=== PATIENT | female | born 1930 | race Caucasian/White ===

== ENCOUNTER 2016-06-23 16:28 | Inpatient (IN) | payer MEDICARE, OTHER ==
[~2016-06-23] VITALS: Ht 154.9 cm; Wt 46.0 kg
[2016-06-23 17:28] LABS: MEAN CORPUSCULAR HEMOGLOBIN 31.7 pg (27.0-33.0); MEAN CORPUSCULAR HGB CONC 32.5 g/dl (32.0-36.5); MEAN CORPUSCULAR VOLUME 97.6 fl (80.0-96.0); RED CELL DISTRIBUTION WIDTH 14.2 % (11.5-14.5); WHITE BLOOD COUNT 17.2 K/mm3 (4.0-10.0)
--- NOTE | 2016-06-23 17:41 | REP ---
Clinical: Trauma. Comparison: 07/31/2015 . Findings: Age-related atrophy and microvascular ischemic changes are appreciated. The ventricles and sulci are symmetric. Hauser-white differentiation is maintained. There is no evidence for acute intracranial hemorrhage, mass/mass effect, pathology or infarction. No extra-axial fluid collection. Calvarium is intact. Paranasal sinuses and mastoid air cells are clear. Impression: Age related atrophy and microvascular ischemic changes. No acute intracranial hemorrhage, infarction, or mass/mass effect. Signed by Donaldo Canales MD 06/23/2016 05:33 P
--- NOTE | 2016-06-23 18:01 | REP ---
Clinical: Trauma . Comparison: 10/11/2012 . Findings: The mediastinum and cardiac silhouette are stable and within normal limits for portable technique. The lung vargas are clear without acute consolidation, effusion, or pneumothorax. Skeletal structures are intact. Impression: Normal portable chest x-ray No acute cardiopulmonary process appreciated. Signed by Donaldo Canales MD 06/23/2016 05:52 P
--- NOTE | 2016-06-23 18:03 | REP ---
Clinical: Trauma. Technique: AP and cross-table lateral views of the left femur. Findings: In conjunction with left hip series, there is a comminuted intertrochanteric fracture involving the left proximal femur along with age-related degenerative changes. No other fracture or dislocation is identified. Impression: Comminuted intertrochanteric fracture of the left proximal femur. Degenerative changes to the hip and knee joints. Signed by Donaldo Canales MD 06/23/2016 05:55 P
--- NOTE | 2016-06-23 18:04 | REP ---
Clinical: Trauma. Technique: Two AP views of the left hemithorax. Findings: Evidence to suggest old posterior eight - tenth rib fractures. No obvious acute left rib fracture identified. Impression: Old healed left eighth - tenth rib fractures. No obvious acute rib fracture identified. Signed by Donaldo Canales MD 06/23/2016 05:57 P
--- NOTE | 2016-06-23 18:04 | REP ---
Clinical: Trauma. Technique: Single AP view of the left knee. Findings: Osteopenia and degenerative changes including osteophytosis, subchondral sclerosis and joint space narrowing noted. No obvious acute fracture in the frontal projection. Impression: Osteopenia and degenerative changes. Signed by Donaldo Canales MD 06/23/2016 05:55 P
--- NOTE | 2016-06-23 18:08 | REP ---
Clinical: Trauma. Technique: AP view of the pelvis with AP and cross-table lateral views of the left hip. Findings: There is a comminuted, displaced intertrochanteric fracture involving the left proximal femur. Overlying soft tissue swelling and injury as well as vascular injury cannot be excluded. Impression: Comminuted displaced left intertrochanteric fracture of the proximal femur. Cannot exclude associated vascular or surrounding soft tissue injuries. Signed by Donaldo Canales MD 06/23/2016 05:59 P
--- NOTE | 2016-06-23 18:16 | ECGEPIP ---
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
[2016-06-23] MEDS ORDERED: ONDANSETRON 4MG/2ML VIAL (J2405) As Ordered ONE (18:23)
[2016-06-23] MEDS ORDERED: fentaNYL 100 MCG/2 ML INJECTION (J3010) As Ordered ONE (18:24)
[2016-06-23] MEDS ORDERED: FOLI1TAB2 PO (18:59)
[2016-06-23] MEDS ORDERED: HUMI40KI SC (18:59)
[2016-06-23] MEDS ORDERED: ASPI1TAB PO (18:59)
[2016-06-23] MEDS ORDERED: TYLE650T35 PO (18:59)
[2016-06-23] MEDS ORDERED: ESCI20TA PO (19:02)
[2016-06-23] MEDS ORDERED: LEVO112T25 PO (19:02)
[2016-06-23] MEDS ORDERED: LISI10TA4 PO (19:02)
[2016-06-23] MEDS ORDERED: METH2.5TA PO (19:02)
[2016-06-23] MEDS ORDERED: VITA10002 PO (19:03)
[2016-06-23] MEDS ORDERED: TRAM50TA2 PO (19:03)
[2016-06-23] MEDS ORDERED: DRIS50002 PO (19:03)
[2016-06-23 19:17] LABS: INR 0.89
[2016-06-23 19:33] LABS: ALBUMIN 3.4 GM/DL (3.2-5.2); ALKALINE PHOSPHATASE 75 U/L (45-117); ALT/SGPT 20 U/L (12-78); ANION GAP 7 MEQ/L (8-16); AST/SGOT 20 U/L (15-37); BILIRUBIN,DIRECT 0.2 MG/DL (0.0-0.2); BILIRUBIN,TOTAL 0.5 MG/DL (0.2-1.0); BLOOD UREA NITROGEN 21 MG/DL (7-18); CALCIUM LEVEL 8.8 MG/DL (8.8-10.2); CARBON DIOXIDE LEVEL 28 MEQ/L (21-32); CHLORIDE LEVEL 107 MEQ/L (98-107); CREATININE FOR GFR 0.69 MG/DL (0.55-1.02); GLOMERULAR FILTRATION RATE > 60.0 (>32); GLUCOSE, FASTING 137 MG/DL (83-110); POTASSIUM SERUM 4.4 MEQ/L (3.5-5.1); SODIUM LEVEL 142 MEQ/L (136-145); TOTAL PROTEIN 6.8 GM/DL (6.4-8.2)
[2016-06-23] MEDS ORDERED: MORPHINE 2 MG/ML 1ML SYRINGE IV PRN (20:00)
[2016-06-23] MEDS ORDERED: PERCOCET 5MG/325MG TAB PO PRN (20:00)
[2016-06-23] MEDS ORDERED: ONDANSETRON 4MG/2ML VIAL (J2405) IV PRN (20:00)
--- NOTE | 2016-06-23 20:50 | HPE ---
DATE OF ADMISSION: 06/23/2016 PRIMARY CARE PROVIDER: Dr. Bassem Cano ORTHOPEDIC SURGEON: Dr. Loc Dobson CHIEF COMPLAINT: Fall. HISTORY OF PRESENT ILLNESS: This is an 86-year-old female patient with underlying medical history of hypothyroidism, rheumatoid arthritis, osteoarthritis, Alzheimer's dementia, severe, hypertension, baseline ambulatory with assistance and a walker. As per family, the patient fell out of her chair yesterday night and subsequently, as per family, has been in pretty significant pain of the left lower extremity. The patient, at baseline, is alert and oriented times one, requiring 24/7 care, unable to assess activity status. As per family, has not had any coronary arterial disease, history of coronary arterial disease, or cerebrovascular accident. Currently, the patient is nonverbal, seems to be in mild distress, frowning. Denies any chest pain. As per family, yesterday night the patient attempted to stand, tipped to the side and fell. Denies any loss of consciousness. No head trauma. ALLERGIES: No known drug allergies. PAST MEDICAL HISTORY: 1. Hypothyroidism. 2. Rheumatoid arthritis. 3. Severe Alzheimer's dementia. 4. Hypertension. PAST SURGICAL HISTORY: 1. Oophorectomy. SOCIAL HISTORY: The patient lives at home, requiring 24/7 care. No smoking or alcohol usage. No illicit drug use. FAMILY HISTORY: Noncontributory. REVIEW OF SYSTEMS: Unable to obtain. HOME MEDICATIONS: - acetaminophen 650 mg by mouth twice a day - aspirin 81 mg by mouth in the morning - vitamin B12 2000 mcg by mouth daily - citalopram 20 mg by mouth at night - folic acid 1 mg by mouth at night - Humira 40 mg subcutaneous every two weeks on Mondays - levothyroxine 112 mcg by mouth at night - Lisinopril 20 mg at night - methotrexate on Mondays 10 mg by mouth once a week - tramadol 50 mg by mouth twice a day - vitamin D 50,000 by mouth weekly on Mondays PHYSICAL EXAMINATION: VITAL SIGNS: Blood pressure 152/89, pulse 77, respirations 16, temperature 98.3, pulse oximetry 97% on room air. GENERAL: The patient is minimally verbal, grimaces. In mild distress. HEENT: Normocephalic, atraumatic. Dry mucous membranes. PULMONARY: Bilaterally clear to auscultation. CARDIAC: Regular rate and rhythm. Normal S1, S2. ABDOMEN: Soft, nontender. Hypoactive bowel sounds. EXTREMITIES: Left lower extremity is externally rotated and shortened. Dorsalis pedis and posterior tibialis pulses 2+. No edema in bilateral lower extremities. EKG shows sinus rhythm with no significant ST segment changes compared to previous. LABORATORY DATA: WBC 17.2, hemoglobin and hematocrit 9.8/30, platelets 311. Chemistry: Sodium 142, potassium 4.4, chloride 107, bicarbonate 28, BUN 21, creatinine 0.69. Cardiac enzymes: Total CK 224, troponin negative. ASSESSMENT AND PLAN: This is an 86-year-old female patient with underlying medical history of rheumatoid arthritis, hypothyroidism, osteoarthritis, Alzheimer's dementia, severe, hypertension, admitted status post fall with left intertrochanteric fracture. 1. Fall with left intertrochanteric fracture. Orthopedics consulted. Pain regimen as prescribed. IV fluids. The patient had a discussion with orthopedic surgeon and family given the alternatives and family is aware that even if the surgery is success likely the patient will not be able to walk and there is significant risks to the surgery and without the surgery, the patient will experience significant pain. Family is aware of the risk of the surgery and would like to proceed. Despite the risks, family would like to proceed with surgery, given the alternative would be even worse, in terms of prolonged bed bound and significant pain. The patient is currently optimized. Continue aspirin. 2. Hypothyroidism. Continue Synthroid. Followup thyroid panel. 3. History of rheumatoid arthritis. Continue home medications. 4. Osteoarthritis. Continue home medications. 5. Alzheimer's dementia, supportive care. 6. Hypertension. Monitor blood pressure. The patient is currently hypertensive secondary to pain. 7. Pain control. 8. Deep vein thrombosis (DVT) prophylaxis. Heparin subcutaneously for now. We will likely place the patient on Coumadin, as per orthopedics after surgery. DISPOSITION: Pending surgery tomorrow.
--- NOTE | 2016-06-23 21:24 | EDDOCDS ---
Nurse's Notes [facility] Name: Kj Clement Age: 86 yrs Sex: Female : 1930 Arrival Date: 06/23/2016 Time: 16:28 Bed 13 Private MD: Bassem Cano Diagnosis: Unspecified fracture of left femur-Comminuted intertrochanteric fracture of the left proximal femur Presentation: 06/23 16:52 Presenting complaint: Patient states: attempted to stand and tipped to side and fell [facility] last night .injure left hip and lower ext. unwitnessed. no LOC. able to bear weight. Adult Sepsis Screening: The patient does not have new or worsening altered mentation. Patient's respiratory rate is less than 22. Systolic blood pressure is greater than 100. Patient has a qSOFA score of 0- Negative Sepsis Screen. Suicide/Homicide risk assessment- the patient denies having any suicidal and/or homicidal ideations and does not present with any other emotional, behavioral or mental health complaints. Status: Patient is not a business services analyst or dependent. Transition of care: patient was not received from another setting of care. 16:52 Acuity: TAYLOR Level 4 [facility] 16:52 Method Of Arrival: Ambulance [facility] Triage Assessment: 16:57 General: Appears per are provider, overall presentation unchnged. Pain: Denies pain. [facility] Musculoskeletal: No deficits noted. Historical: - Allergies: no known allergies; - Home Meds: 1. acetaminophen 650 mg Oral tab 1 tab every 4-6 hours 2. aspirin 81 mg Oral tab 1 tab once daily 3. folic acid 1 mg Oral tab 1 tab once daily 4. Humira subcutaneous every 2 weeks 5. levothyroxine 112 mcg Oral cap 1 cap once daily 6. Lexapro 20 mg Oral tab 1 tab once daily 7. lisinopril 10 mg Oral tab 1 tab once daily 8. Methotrexate (Anti-Rheumatic) 2.5 mg Oral DsPk 4 tabs once wkly 9. tramadol 50 mg Oral tab 1 tab every 12 hours 10. Vitamin B-12 2,000 mcg Oral TbER daily 11. Vitamin [place] Oral [address]06 unit weekly - PMHx: Thyroid problem; Rheumatoid Arthritis; Osteoarthritis; Dementia; Hypertension; - PSHx: oopherectomy; - Social history: Smoking status: Patient states was never smoker of tobacco. No barriers to communication noted. - Family history: Not pertinent. - : The pt / caregiver states he / she is not on anticoagulants. Home medication list is obtained from the caregiver. - Exposure Risk Screening:: None identified. Screenin:02 Screening information is obtained from family members. Fall risk: At risk due to age. [facility] Assistance ADL's: Requires assistance with meal preparation, this assistance is provided by family members, bathing, assistance is provided by family members, dressing, assistance is provided by family members, toileting, assistance is provided by family members, ambulation, assistance is provided by family members, housework, assistance is provided by family members, medication administration, assistance is provided by care providers. Abuse/DV Screen: The patient / caregiver reports he/she is: not in a situation that causes fear, pain or injury. Nutritional screening: No deficits noted. Advance Directives: Currently, there is a health care proxy, There is no active DNR order. There is no living will. There is an active Power of Outside Maintenance Worker, chase marquis. home support is adequate. Assessment: 17:02 General: Appears ambulance arrival. without shortening or rotation. pulses intact x 2. [facility] 18:34 General: Appears non verbal. grimaces with movement of leg. family attentive at side.. [facility] 19:08 General: Appears Unable to volunteer pain level. overall presentation UNCHANGED FROM [facility] ARRIVAL. vs ASMNOTED. 19:39 Reassessment: Patient appears in no apparent distress at this time. Patient states jp6 symptoms have not improved. General: Appears in no apparent distress, slender, Behavior is cooperative, quiet. Pain: Noted to be sleeping. Neurological: No deficits noted. Level of Consciousness is confused, Oriented to confused x3. EENT: No deficits noted. Cardiovascular: Capillary refill < 3 seconds Heart tones S1 S2 Edema is absent. Pulses are all present. Rhythm is regular. Respiratory: No deficits noted. Airway is patent Respiratory effort is even, unlabored, Respiratory pattern is regular, symmetrical, Breath sounds are clear bilaterally. GI: No deficits noted. : No deficits noted. Derm: Skin is intact, Skin is dry, Skin is pink, warm & dry. Musculoskeletal: Circulation, motion, and sensation intact Capillary refill < 3 seconds Range of motion limited in left hip. Vital Signs: 16:57 BP 170 / 42; Pulse 85; Resp 18; Temp 98.3(T); Pulse Ox 98% on R/A; Weight 44 kg; Height [facility] 5 ft. 197 in. (652.78 cm); 18:34 BP 192 / 80; Pulse 89; Resp 16; Pulse Ox 97% on R/A; jmk 19:07 BP 152 / 90 (auto/); jp6 19:08 BP 152 / 89; Pulse 77; jmk 19:30 BP 146 / 94 (auto/); jp6 19:38 BP 146 / 94; Pulse 84; Resp 16; Temp 99.4; Pulse Ox 98% on R/A; Pain 0/10; jp6 20:30 BP 186 / 77 (auto/); jp6 20:38 BP 210 / 87 (auto/); jp6 20:41 Pulse 84 MON; Pulse Ox 93% ; jp6 20:43 BP 174 / 73 (auto/); jp6 20:43 Pulse 84 MON; Pulse Ox 96% ; jp6 20:51 Pulse 82 MON; Pulse Ox 93% ; jp6 16:57 Body Mass Index 1.03 (44.00 kg, 652.78 cm) [facility] Vitals: 16:57 Log In Time N/A - ambulance arrival. [facility] ED Course: 16:29 Patient visited by Pamela Kay. mt4 16:29 Bassem Cano is Private Physician. mt4 16:29 Patient moved to Waiting mt4 16:30 Patient moved to 13 mt4 16:39 Imelda Linder DO is [facility]. bs6 16:39 Dasha Pineda MD is Attending Physician. bs6 16:39 Patient visited by Imelda Linder DO. bs6 16:39 Patient visited by Imelda Linder DO. bs6 16:54 Triage Initiated jmk 16:59 [facility] [place] was scanned into [employer] and attached to record. zo 17:02 The patient / caregiver is instructed regarding the plan of care and ED course. jmk 17:13 Patient visited by Jonny Beltre PCA. jlf 17:13 Patient visited by Jonny Beltre PCA. jlf 17:13 EKG done. (by ED staff). Reviewed by Dasha Pineda MD. jlf 17:16 Troponin Sent. jmk 17:16 CBC Sent. jmk 17:16 Basic Metabolic Profile Sent. jmk 17:16 Cardiac Injury Profile Sent. jmk 18:13 Type & Screen Sent. jmk 18:14 Pt & Aptt Sent. jmk 18:21 CT Head Without Contrast Returned. EDMS 18:21 Chest, 2 View (pa\E\lat) Returned. EDMS 18:21 Femur Returned. EDMS 18:21 Knee, Complete Returned. EDMS 18:21 Ribs-Uni Without PA Chest Returned. EDMS 18:21 Hip,AP,LAT to include Pelvis Returned. EDMS 18:41 Patient visited by Jonny Beltre PCA. jlf 19:07 EKG-ADULT Returned. EDMS 19:10 Yaneth Pérez is Hospitalizing Provider. bs6 19:38 Noy Muse,RN is Primary Nurse. jp6 19:38 Patient visited by Noy Muse,BENNIE. jp6 19:39 Inserted saline lock: 20 gauge in left forearm. No procedures done that require jp6 assistance. 19:41 Admission Orders was scanned into [employer] and attached to record. ml3 21:01 Pulse ox on. NIBP on. jp6 21:01 Raymundo cath inserted 16 Fr. Balloon inflated. To gravity drainage. Urine specimen jp6 collected. returned cloudy urine. 21:11 URINE CULTURE Sent. jp6 21:11 URINALYSIS Sent. jp6 Administered Medications: 18:35 Drug: Ondansetron 4 mg Route: IVP; Site: left wrist; jmk 18:36 Drug: NS 0.9% 1000 ml Route: IV; Rate: 100 mL/hr; Site: left antecubital; jmk 18:36 Drug: fentaNYL (PF) 25 mcg [fentanyl (PF) 50 mcg/mL injection solution (0.5 mL)] Route: [facility] IVP; Site: left wrist; Order Results: Lab Order: Cardiac Injury Profile; SPEC'M 06/23/16 19:03 Test: CPK CREATINE PHOSPHOKINASE; Value: 224; Range: 26-192; Abnormal: Above high normal; Units: U/L; Status: F Test: CK-MB VALUE MASS; Value: 4.0; Range: 0.0-3.6; Abnormal: Above high normal; Units: NG/ML; Status: F Test: MB/CK RELATIVE INDEX; Value: 1.78; Range: < OR =4; Status: F Test Note: ; DIAGNOSIS CRITERIA MMB ng/ml Relative Index (RI) NON-AMI < or = 5 N/A HAUSER ZONE > 5 < or = 4 AMI > 5 > 4 Lab Order: Troponin; [facility] 06/23/16 19:03 Test: TROPONIN I; Value: 0.02; Range: < 0.10; Units: NG/ML; Status: F Test Note: ; Troponin I Reference Interval for [employer] LOCI: 99th Percentile= 0.00-0.045 ng/ml Risk Stratification: <= 0.10 ng/ml Decreased Risk for Adverse Clinical Events. 0.10-1.50 ng/ml Increased Risk for Adverse Clinical Events. Evaluation of additional criterion and/or repeat testing in 2-6 hours is suggested to rule out myocardial damage. >= 1.50 ng/ml Indicative of Myocardial Injury. Lab Order: CBC; [facility] 06/23/16 17:15 Test: WHITE BLOOD COUNT; Value: 17.2; Range: 4.0-10.0; Abnormal: Above high normal; Units: K/mm3; Status: F Test: RED BLOOD COUNT; Value: 3.08; Range: 4.00-5.40; Abnormal: Below low normal; Units: M/mm3; Status: F Test: HEMOGLOBIN; Value: 9.8; Range: 12.0-16.0; Abnormal: Below low normal; Units: g/dl; Status: F Test: HEMATOCRIT; Value: 30.0; Range: 36.0-47.0; Abnormal: Below low normal; Units: %; Status: F Test: MEAN CORPUSCULAR VOLUME; Value: 97.6; Range: 80.0-96.0; Abnormal: Above high normal; Units: fl; Status: F Test: MEAN CORPUSCULAR HEMOGLOBIN; Value: 31.7; Range: 27.0-33.0; Units: pg; Status: F Test: MEAN CORPUSCULAR HGB CONC; Value: 32.5; Range: 32.0-36.5; Units: g/dl; Status: F Test: RED CELL DISTRIBUTION WIDTH; Value: 14.2; Range: 11.5-14.5; Units: %; Status: F Test: PLATELET COUNT, AUTOMATED; Value: 311; Range: 150-450; Units: k/mm3; Status: F Lab Order: Basic Metabolic Profile; [facility] 06/23/16 19:03 Test: GLUCOSE, FASTING; Value: 137; Range: 83-110; Abnormal: Above high normal; Units: MG/DL; Status: F Test: BLOOD UREA NITROGEN; Value: 21; Range: 7-18; Abnormal: Above high normal; Units: MG/DL; Status: F Test: CREATININE FOR GFR; Value: 0.69; Range: 0.55-1.02; Units: MG/DL; Status: F Test: GLOMERULAR FILTRATION RATE; Value: > 60.0; Range: >32; Status: F Test: SODIUM LEVEL; Value: 142; Range: 136-145; Units: MEQ/L; Status: F Test: POTASSIUM SERUM; Value: 4.4; Range: 3.5-5.1; Units: MEQ/L; Status: F Test: CHLORIDE LEVEL; Value: 107; Range: 98-107; Units: MEQ/L; Status: F Test: CARBON DIOXIDE LEVEL; Value: 28; Range: 21-32; Units: MEQ/L; Status: F Test: ANION GAP; Value: 7; Range: 8-16; Abnormal: Below low normal; Units: MEQ/L; Status: F Test: CALCIUM LEVEL; Value: 8.8; Range: 8.8-10.2; Units: MG/DL; Status: F Test Note: ; Units are mL/min/1.73 m2 Chronic Kidney Disease Staging per NKF: Stage I & II GFR >=60 Normal to Mildly Decreased Stage III GFR 30-59 Moderately Decreased Stage IV GFR 15-29 Severely Decreased Stage V GFR <15 Very Little GFR Left ESRD GFR <15 on HIGH SCHOOL DIRECTOR Lab Order: Pt & Aptt; [facility]' 06/23/16 19:03 Test: PROTHROMBIN TIME; Value: 12.1; Range: 12.3-14.5; Abnormal: Below low normal; Units: SECONDS; Status: F Test: INR; Value: 0.89; Status: F Test: PARTIAL THROMBOPLASTIN TIME; Value: 20.0; Range: 26.6-37.1; Abnormal: Below low normal; Units: SECONDS; Status: F Test Note: ; THERAPUTIC HUMAN INR VALUES INDICATIONS NORMAL RANGES PROPHYLAXIS/TREATMENT OF: VENOUS THROMBOSIS 2.0-3.0 PULMONARY EMBOLISM 2.0-3.0 PREVENTION OF SYSTEMIC EMBOLISM FROM: TISSUE HEART VALVES 2.0-3.0 ACUTE MYOCARDIAL INFARCTION 2.0-3.0 VALVULAR HEART DISEASE 2.0-3.0 ATRIAL FIBRILLATION 2.0-3.0 MECHANICAL VALVES(HIGH RISK) 2.5-3.5 RECURRENT MYOCARDIAL INFARCTION 2.5-3.5 Lab Order: Type & Screen; SPEC' 06/23/16 19:03 Test: BLOOD TYPE; Value: A POS; Status: F Test: AB SCREEN (INDIRECT DELVIN)GEL; Value: NEGATIVE; Status: F Lab Order: LIVER PROFILE; [facility]' 06/23/16 19:03 Test: AST/SGOT; Value: 20; Range: 15-37; Units: U/L; Status: F Test: ALT/SGPT; Value: 20; Range: 12-78; Units: U/L; Status: F Test: ALKALINE PHOSPHATASE; Value: 75; Range: 45-117; Units: U/L; Status: F Test: BILIRUBIN,TOTAL; Value: 0.5; Range: 0.2-1.0; Units: MG/DL; Status: F Test: BILIRUBIN,DIRECT; Value: 0.2; Range: 0.0-0.2; Units: MG/DL; Status: F Test: TOTAL PROTEIN; Value: 6.8; Range: 6.4-8.2; Units: GM/DL; Status: F Test: ALBUMIN; Value: 3.4; Range: 3.2-5.2; Units: GM/DL; Status: F Test: ALBUMIN/GLOBULIN RATIO; Value: 1.00; Range: 1.00-1.93; Status: F Radiology Order: EKG-ADULT Test: EKG-ADULT REASON FOR EXAMINATION: Trauma; Stationary ECG Study; [facility] - ED; ; Test Date: 2016-06-23; Pat Name: KJ CLEMENT Department:; Room: -; Gender: F Deputy Probation Officer: kiersten; : 1930 Requested By: IMELDA LINDER; Order Number: [id number] Reading MD: Mario Khan; Measurements; Intervals [place]; Rate: 87 P: 69; TX: 127 QRS: 36; QRSD: 78 T: 64; QT: 326; QTc: 393; Interpretive Statements; SINUS RHYTHM; LVH; NONSPECIFIC ST T-WAVE ABNORMALITY; SIMILAR TO 10/11/12; Electronically Signed On 06-23-2016 18:15:39 EST by Mario Khan; Radiology Order: Chest, 2 View (pa\E\lat) Test: Chest, 2 View (pa\E\lat) REASON FOR EXAMINATION: Trauma; Clinical: Trauma .; ; Comparison: 10/11/2012 .; ; Findings:; The mediastinum and cardiac silhouette are stable and within normal limits for; portable technique. The lung vargas are clear without acute consolidation,; effusion, or pneumothorax. Skeletal structures are intact.; ; Impression:; Normal portable chest x-ray; No acute cardiopulmonary process appreciated.; ; ; Signed by; Donaldo Canales MD 06/23/2016 05:52 P; Radiology Order: Hip,AP,LAT to include Pelvis Test: Hip,AP,LAT to include Pelvis REASON FOR EXAMINATION: Trauma; Clinical: Trauma.; ; Technique: AP view of the pelvis with AP and cross-table lateral views of the; left hip.; ; Findings:; There is a comminuted, displaced intertrochanteric fracture involving the left; proximal femur. Overlying soft tissue swelling and injury as well as vascular; injury cannot be excluded.; ; Impression:; Comminuted displaced left intertrochanteric fracture of the proximal femur.; Cannot exclude associated vascular or surrounding soft tissue injuries.; ; ; Signed by; Donaldo Canales MD 06/23/2016 05:59 P; Radiology Order: Femur Test: Femur REASON FOR EXAMINATION: Trauma; Clinical: Trauma.; ; Technique: AP and cross-table lateral views of the left femur.; ; Findings:; In conjunction with left hip series, there is a comminuted intertrochanteric; fracture involving the left proximal femur along with age-related degenerative; changes. No other fracture or dislocation is identified.; ; Impression:; Comminuted intertrochanteric fracture of the left proximal femur.; Degenerative changes to the hip and knee joints.; ; ; Signed by; Donaldo Canales MD 06/23/2016 05:55 P; Radiology Order: Knee, Complete Test: Knee, Complete REASON FOR EXAMINATION: Trauma; Clinical: Trauma.; ; Technique: Single AP view of the left knee.; ; Findings:; Osteopenia and degenerative changes including osteophytosis, subchondral; sclerosis and joint space narrowing noted. No obvious acute fracture in the; frontal projection.; ; Impression:; Osteopenia and degenerative changes.; ; ; Signed by; Donaldo Canales MD 06/23/2016 05:55 P; Radiology Order: Ribs-Uni Without PA Chest Test: Ribs-Uni Without PA Chest REASON FOR EXAMINATION: Trauma; Clinical: Trauma.; ; Technique: Two AP views of the left hemithorax.; ; Findings:; Evidence to suggest old posterior eight - tenth rib fractures. No obvious acute; left rib fracture identified.; ; Impression:; Old healed left eighth - tenth rib fractures.; No obvious acute rib fracture identified.; ; ; Signed by; Donaldo Canales MD 06/23/2016 05:57 P; Radiology Order: CT Head Without Contrast Test: CT Head Without Contrast REASON FOR EXAMINATION: Trauma; Clinical: Trauma.; ; Comparison: 07/31/2015 .; ; Findings:; Age-related atrophy and microvascular ischemic changes are appreciated. The; ventricles and sulci are symmetric. Hauser-white differentiation is maintained.; There is no evidence for acute intracranial hemorrhage, mass/mass effect,; pathology or infarction. No extra-axial fluid collection. Calvarium is intact.; Paranasal sinuses and mastoid air cells are clear.; ; Impression:; Age related atrophy and microvascular ischemic changes.; No acute intracranial hemorrhage, infarction, or mass/mass effect.; ; ; Signed by; Donaldo Canales MD 06/23/2016 05:33 P; Outcome: 19:14 Decision to Hospitalize by Provider. bs6 21:01 Discharge Assessment: Patient confused, Oriented to none Patient Patient able to jp6 independently bathe himself/herself with little or no assistance, to independently dress himself/herself with little or no assistance, to independently attend to toileting needs with little or no assistance, to independently transfer in/out of bed and/or chair with little or no assistance, patient administered narcotics - yes. The following High Risk Discharge criteria are identified: None. Admitted to Med/Surg accompanied by tech, via stretcher, with chart. Condition: unchanged. No special radiology studies were completed. Admission hand-off: Report Faxed Fax receipt verified by Janell Henning. Property :Personal belongings accompany Pt. 21:22 Patient left the ED. jp6 Signatures: Dispatcher [employer] EDMS Dallas Aquino,RN RN quinten Gloria, Parker, Mandarin Teacher Unit ml3 Nam, Sabrinaperlajinny sabrina Rahul, Pamela mt4 Jonny Beltre, ORIGINATION SPECIALIST ORIGINATION SPECIALIST jlf Imelda Linder, DO bs6 Noy Muse,RN RN jp6 Corrections: (The following items were deleted from the chart) 18:31 18:13 LIVER PROFILE+LAB sent. quinten [facility] 18:41 18:14 PROTHROMBIN TIME PROFILE\E\INR+LAB sent. quinten MENDOZA MTDD
--- NOTE | 2016-06-23 21:24 | EDDOCDS ---
Physician Documentation [facility] Name: Martha Moroe Age: 86 yrs Sex: Female : 1930 Arrival Date: 06/23/2016 Time: 16:28 Bed 13 Private MD: Bassem Cano Disposition: 06/23/16 19:14 Hospitalization ordered by Yaneth Pérez for Inpatient Admission. Preliminary diagnosis is Unspecified fracture of left femur - Comminuted intertrochanteric fracture of the left proximal femur. - Bed requested for 5 Henning. - Status is Inpatient Admission. jp6 - Condition is Stable. - Problem is new. - Symptoms are unchanged. Historical: - Allergies: no known allergies; - Home Meds: 1. acetaminophen 650 mg Oral tab 1 tab every 4-6 hours 2. aspirin 81 mg Oral tab 1 tab once daily 3. folic acid 1 mg Oral tab 1 tab once daily 4. Humira subcutaneous every 2 weeks 5. levothyroxine 112 mcg Oral cap 1 cap once daily 6. Lexapro 20 mg Oral tab 1 tab once daily 7. lisinopril 10 mg Oral tab 1 tab once daily 8. Methotrexate (Anti-Rheumatic) 2.5 mg Oral DsPk 4 tabs once wkly 9. tramadol 50 mg Oral tab 1 tab every 12 hours 10. Vitamin B-12 2,000 mcg Oral TbER daily 11. Vitamin D Oral 79120 unit weekly - PMHx: Thyroid problem; Rheumatoid Arthritis; Osteoarthritis; Dementia; Hypertension; - PSHx: oopherectomy; - Social history: Smoking status: Patient states was never smoker of tobacco. No barriers to communication noted. - Family history: Not pertinent. - : The pt / caregiver states he / she is not on anticoagulants. Home medication list is obtained from the caregiver. - Exposure Risk Screening:: None identified. Vital Signs: 06/23 16:57 BP 170 / 42; Pulse 85; Resp 18; Temp 98.3(T); Pulse Ox 98% on R/A; Weight 44 kg / 97 jmk lbs; Height 5 ft. 197 in. (652.78 cm); 18:34 BP 192 / 80; Pulse 89; Resp 16; Pulse Ox 97% on R/A; jmk 19:07 BP 152 / 90 (auto/); jp6 19:08 BP 152 / 89; Pulse 77; jmk 19:30 BP 146 / 94 (auto/); jp6 19:38 BP 146 / 94; Pulse 84; Resp 16; Temp 99.4; Pulse Ox 98% on R/A; Pain 0/10; jp6 20:30 BP 186 / 77 (auto/); jp6 20:38 BP 210 / 87 (auto/); jp6 20:41 Pulse 84 MON; Pulse Ox 93% ; jp6 20:43 BP 174 / 73 (auto/); jp6 20:43 Pulse 84 MON; Pulse Ox 96% ; jp6 20:51 Pulse 82 MON; Pulse Ox 93% ; jp6 16:57 Body Mass Index 1.03 (44.00 kg, 652.78 cm) quinten MDM: 16:47 Financial registration complete. zo 16:59 [facility] [place] Agreement was scanned into [facility] and attached to record. zo 17:03 Cardiac Injury Profile Ordered. EDMS 17:03 Troponin Ordered. EDMS 17:03 CBC Ordered. EDMS 17:03 Basic Metabolic Profile Ordered. EDMS 17:04 Chest, 2 View (pa\E\lat) Ordered. EDMS 17:04 Hip,AP,LAT to include Pelvis Ordered. EDMS 17:04 Femur Ordered. EDMS 17:04 ECG WITH READING ER PHYS+CARDIAG ordered. EDMS 17:04 Knee, Complete Ordered. EDMS 17:04 CT Head Without Contrast Ordered. EDMS 17:05 Ribs-Uni Without PA Chest Ordered. EDMS 17:53 BED REQUEST+ADM ordered. EDMS 17:54 Pt & Aptt Ordered. EDMS 17:54 Type & Screen Ordered. EDMS 18:02 NS 0.9% 1000 ml IV at 100 mL/hr continuous ordered. bs6 18:02 Ondansetron 4 mg IVP once ordered. bs6 18:02 fentaNYL (PF) 25 mcg IVP once ordered. bs6 18:31 LIVER PROFILE Ordered. EDMS 19:41 Admission Orders was scanned into [facility] and attached to record. ml3 19:57 CARDIAC MARKER PANEL Ordered. EDMS 19:58 CARDIAC MARKER PANEL Ordered. EDMS 19:58 BLOOD CULTURES Ordered. EDMS 19:58 BLOOD CULTURES Ordered. EDMS 20:00 NPO FOR TEST/PROCEDURE ordered. EDMS 20:01 URINALYSIS Ordered. EDMS 20:01 URINE CULTURE Ordered. EDMS 20:03 Admission / Observation Status ordered. EDMS 20:04 COMPLETE BLOOD COUNT Ordered. EDMS 20:04 BASIC METABOLIC PROFILE Ordered. EDMS 20:04 MAGNESIUM LEVEL Ordered. EDMS 20:48 THYROID PROFILE Ordered. EDMS Administered Medications: 18:35 Drug: Ondansetron 4 mg Route: IVP; Site: left wrist; [facility] 18:36 Drug: NS 0.9% 1000 ml Route: IV; Rate: 100 mL/hr; Site: left antecubital; [facility] 18:36 Drug: fentaNYL (PF) 25 mcg [fentanyl (PF) 50 mcg/mL injection solution (0.5 mL)] Route: quinten IVP; Site: left wrist; Signatures: Dispatcher [employer] EDMS Dallas Aquino,RN RN Parker Nice, Consulting [employer] Professional Unit ml3 Jass Browning Brogan, DO bs6 Noy Muse,RN RN jp6 The chart was reviewed and I authenticate all verbal orders and agree with the evaluation and treatment provided.Corrections: (The following items were deleted from the chart) 18:31 17:54 LIVER PROFILE+LAB ordered. EDMS EDMS 18:41 17:54 PROTHROMBIN TIME PROFILE\E\INR+LAB ordered. EDNM EDMS 20:02 20:00 REGULAR DIET ordered. EDNM EDMS 20:48 20:11 THYROID PROFILE ordered. EDNM EDMS Attachments: 16:59 [facility] Payment Agreement zo 19:41 Admission Orders ml3 MTDD
[2016-06-23 21:30] VITALS: BP 172/77
[2016-06-23] MEDS: ESCITALOPRAM OXALATE 10 MG TAB (LEXAPRO) PO SCH (22:17)
[2016-06-23] MEDS: ASPIRIN 81 MG ENTERIC TAB PO SCH (22:18)
[2016-06-23] MEDS: LEVOTHYROXINE 0.112 MG TAB (112 MCG) PO SCH (22:18)
[2016-06-23] MEDS: SENOKOT S TAB PO SCH (22:20)
[2016-06-23] MEDS: FOLIC ACID 1 MG TAB PO SCH (22:21)
[2016-06-23] MEDS: CYANOCOBALAMIN 500 MCG TAB PO SCH (22:21)
[2016-06-23] MEDS: LR 1,000 ML IV SCH (22:23)
[2016-06-24] VITALS (7 sets, daily range): BP systolic 119–162; BP diastolic 60–94
[2016-06-24] MEDS ORDERED: HEPARIN SOD (PORCINE) 5000 UNITS/ML VIAL SC SCH (06:00)
[2016-06-24 06:21] LABS: MEAN CORPUSCULAR HEMOGLOBIN 32.4 pg (27.0-33.0); MEAN CORPUSCULAR HGB CONC 32.9 g/dl (32.0-36.5); MEAN CORPUSCULAR VOLUME 98.6 fl (80.0-96.0); RED CELL DISTRIBUTION WIDTH 14.2 % (11.5-14.5); WHITE BLOOD COUNT 13.6 K/mm3 (4.0-10.0)
[2016-06-24 06:49] LABS: ANION GAP 9 MEQ/L (8-16); BLOOD UREA NITROGEN 18 MG/DL (7-18); CALCIUM LEVEL 9.1 MG/DL (8.8-10.2); CARBON DIOXIDE LEVEL 28 MEQ/L (21-32); CHLORIDE LEVEL 106 MEQ/L (98-107); CREATININE FOR GFR 0.59 MG/DL (0.55-1.02); GLOMERULAR FILTRATION RATE > 60.0 (>32); GLUCOSE, FASTING 127 MG/DL (83-110); MAGNESIUM LEVEL 1.8 MG/DL (1.8-2.4); POTASSIUM SERUM 4.4 MEQ/L (3.5-5.1); SODIUM LEVEL 143 MEQ/L (136-145); T UPTAKE 38 % (30-39)
[2016-06-24] MEDS: SENOKOT S TAB PO SCH ×2 (07:40→20:31)
[2016-06-24] MEDS: PANTOPRAZOLE 40MG TAB (PROTONIX) PO SCH (07:40)
[2016-06-24] MEDS: LR 1,000 ML IV SCH ×2 (09:20→18:45)
--- NOTE | 2016-06-24 09:26 | IPN ---
DATE: 06/24/2016 86-year-old female seen at bedside. No overnight issues reported. She is relatively nonverbal and has history of advanced dementia. OBJECTIVE: Temperature 97.9, pulse 91, respiratory rate is 20, blood pressure 145/76, SpO2 is 94% on room air. GENERAL: The patient appears to be no acute distress. She is resting comfortably. HEENT: Unremarkable. Throat clear. LUNGS: Clear. HEART: Regular rate and rhythm. ABDOMEN: Soft. EXTREMITIES: No edema. No calf tenderness. LABORATORY DATA: White count is 13.6, hemoglobin 8.3, platelets 254,000, sodium 143, potassium 4.4, chloride 106, bicarb 28, anion gap 9, BUN 18, creatinine 0.59, glucose 127, magnesium 1.8. Troponins remained negative times three. Her urine did show 3+ leukocyte esterase, too numerous to count WBCs, 3+ bacteria. Blood cultures pending times two. Urine culture is pending. ASSESSMENT/PLAN: 1. Status post mechanical fall with left intertrochanteric fracture. Orthopedics is on board and managing pain regimen, bowel regimen and anticoagulation. The patient has been medically optimized by Dr. Garcia on admission. Despite the risks, the family would like to proceed with surgery given the alternative could be worse with prolonged bed bound and significant pain. They are aware of this and again wish to proceed. Continue aspirin. 2. Hypothyroidism. Continue on Synthroid. 3. History of rheumatoid arthritis. Continue current medications. 4. Osteoarthritis. Continue with home medications. 5. Advanced Alzheimer's dementia. Supportive care. 6. Hypertension. Will continue to monitor. 7. Pain control as per orthopedics. 8. Deep vein thrombosis (DVT) prophylaxis. Subcu heparin for now. Likely placed on Coumadin by orthopedics. DISPOSITION: Planned surgery sometime today and she will likely need some kind of physical therapy post surgery.
[2016-06-24] MEDS ORDERED: ceFAZolin 1GM INJ (J0690) As Ordered ONE (09:28)
[2016-06-24] MEDS ORDERED: PROPOFOL 200 MG/20 ML VIAL As Ordered ONE (10:23)
[2016-06-24] MEDS ORDERED: KETAMINE HCL 200 MG/20 ML VIAL As Ordered ONE (10:23)
[2016-06-24] MEDS ORDERED: MIDAZOLAM INJ 2 MG/2 ML VIAL (J2250) As Ordered ONE (10:23)
[2016-06-24] MEDS ORDERED: PHENYLephrine HCL 500 MCG/5 ML (100MCG/ML) SYRINGE (J2370) As Ordered ONE ×2 (10:23→10:46)
[2016-06-24] MEDS ORDERED: ceFAZolin 1GM INJ (J0690) IR ONE (10:37)
[2016-06-24] MEDS ORDERED: PHENYLEPHRINE INJ 10MG/ML VIAL (J2370) As Ordered ONE (10:58)
[2016-06-24] MEDS ORDERED: ONDANSETRON 4MG/2ML VIAL (J2405) IV PRN (12:00)
[2016-06-24] MEDS ORDERED: fentaNYL 100 MCG/2 ML INJECTION (J3010) IV PRN (12:00)
[2016-06-24] MEDS ORDERED: MORPHINE 2 MG/ML 1ML SYRINGE IV PRN (12:00)
[2016-06-24] MEDS ORDERED: LR 1,000 ML IV SCH (12:00)
--- NOTE | 2016-06-24 12:54 | REP ---
Clinical: Status post open reduction and fixation. Technique: Intraoperative fluoroscopic imaging. Findings: Four intraoperative fluoroscopic images demonstrate the patient to be status post intramedullary ross placement for left intertrochanteric fracture. Satisfactory alignment and reduction. Total fluoroscopic time 3 minutes 25 seconds. Impression: Status post open reduction and fixation for intertrochanteric fracture. Signed by Donaldo Canales MD 06/24/2016 12:45 P
[2016-06-24] MEDS ORDERED: PERCOCET 5MG/325MG TAB PO PRN (13:30)
[2016-06-24] MEDS: CYANOCOBALAMIN 500 MCG TAB PO SCH (20:30)
[2016-06-24] MEDS: FOLIC ACID 1 MG TAB PO SCH (20:30)
[2016-06-24] MEDS: LEVOTHYROXINE 0.112 MG TAB (112 MCG) PO SCH (20:30)
[2016-06-24] MEDS: ESCITALOPRAM OXALATE 10 MG TAB (LEXAPRO) PO SCH (20:30)
[2016-06-24] MEDS: ASPIRIN 81 MG ENTERIC TAB PO SCH (20:30)
[2016-06-24] MEDS ORDERED: WARFARIN SOD 5 MG TAB PO ONE (21:00)
[2016-06-25] MEDS: ACETAMINOPHEN TAB 650MG DOSE (2X325MG) PO PRN ×3 (03:11→20:45)
[2016-06-25 06:00] VITALS: BP 157/69
[2016-06-25 06:32] LABS: MEAN CORPUSCULAR HEMOGLOBIN 32.3 pg (27.0-33.0); MEAN CORPUSCULAR HGB CONC 32.4 g/dl (32.0-36.5); MEAN CORPUSCULAR VOLUME 99.8 fl (80.0-96.0); RED CELL DISTRIBUTION WIDTH 14.1 % (11.5-14.5); WHITE BLOOD COUNT 11.4 K/mm3 (4.0-10.0)
[2016-06-25 06:35] LABS: INR 1.08
[2016-06-25 06:45] LABS: ANION GAP 8 MEQ/L (8-16); BLOOD UREA NITROGEN 17 MG/DL (7-18); CALCIUM LEVEL 8.6 MG/DL (8.8-10.2); CARBON DIOXIDE LEVEL 29 MEQ/L (21-32); CHLORIDE LEVEL 105 MEQ/L (98-107); CREATININE FOR GFR 0.49 MG/DL (0.55-1.02); GLOMERULAR FILTRATION RATE > 60.0 (>32); GLUCOSE, FASTING 115 MG/DL (83-110); MAGNESIUM LEVEL 1.7 MG/DL (1.8-2.4); SODIUM LEVEL 142 MEQ/L (136-145)
[2016-06-25] MEDS: PANTOPRAZOLE 40MG TAB (PROTONIX) PO SCH (07:56)
[2016-06-25] MEDS: SENOKOT S TAB PO SCH ×2 (07:56→20:45)
[2016-06-25] MEDS: MIRALAX *UNIT DOSE* 17GM PACKET PO SCH (07:56)
[2016-06-25] MEDS ORDERED: MAG SULF 1GM/100ML (MAG RUN) 1 GM in APPROPRIATE DILUENT 1 EA IV ONE (08:15)
[2016-06-25] MEDS: cefTRIAXone SOD 1 GM in D5W MINI-BAG PLUS 50 ML IV SCH (08:28)
[2016-06-25 08:37] LABS: MEAN CORPUSCULAR HEMOGLOBIN 31.6 pg (27.0-33.0); MEAN CORPUSCULAR HGB CONC 31.7 g/dl (32.0-36.5); MEAN CORPUSCULAR VOLUME 99.7 fl (80.0-96.0); RED CELL DISTRIBUTION WIDTH 15.1 % (11.5-14.5); WHITE BLOOD COUNT 12.6 K/mm3 (4.0-10.0)
--- NOTE | 2016-06-25 10:26 | IPNPDOC ---
Text Note Date of Service The patient was seen on 06/25/16 at 10:17. NOTE Subjective: Pt is minimally verbal at baseline. Does not appear to be in distress. No overnight changes. Objective: Vitals: (see below) General: No acute distress, laying comfortably in bed. HEENT: Moist mucous membranes. Neck: No JVD or lymphadenopathy Cardiac: RRR, No murmurs Pulm: Clear to auscultation b/l. No wheezing, rhonchi Abd: NT/ND + BS Ext: No edema or cyanosis. LLE at the hip region - bandage clean and intact. No active bleeding noted. Swelling noted. Distal pulses intact. Labs (see below) Images: CT Head 06/23/16 Impression: Age related atrophy and microvascular ischemic changes. No acute intracranial hemorrhage, infarction, or mass/mass effect. Knee x ray 06/23/16 Impression:Osteopenia and degenerative changes. Rib X ray 06/23/16 Impression: Old healed left eighth - tenth rib fractures. No obvious acute rib fracture identified. Hip/pelvis x ray 06/23/16 Impression: Comminuted displaced left intertrochanteric fracture of the proximal femur. Cannot exclude associated vascular or surrounding soft tissue injuries. Assessment/Plan 1. POD 1 s/p left intertrochanteric fx repair with ross placement. DVT prophy and pain management per orthopedics 2. Acute anemia - Hb 6.6 today. May be related to recent surg, although no over bleeding noted at this time. Occult blood test. Transfuse 2U PRBC. 3. Hypothyroidism- continue Synthroid 4. Rheumatoid arthritis- continue home meds 5. Osteoporosis- continue meds 6. Advanced Alzheimer's dementia- nonverbal 7. Hypertension- continue home meds 8. DVT prophylaxis- Coumadin held for now given anemia. VS,Fishbone, I+O VS, Fishbone, I+O Laboratory Tests 06/25/16 06:20 Calcium Level 8.6 L, Red Blood Count 2.03 L, Mean Corpuscular Volume 99.8 H, Mean Corpuscular Hemoglobin 32.3, Mean Corpuscular Hemoglobin Concent 32.4, Red Cell Distribution Width 14.1 06/25/16 08:23 Red Blood Count 2.08 L, Mean Corpuscular Volume 99.7 H, Mean Corpuscular Hemoglobin 31.6, Mean Corpuscular Hemoglobin Concent 31.7 L, Red Cell Distribution Width 15.1 H Vital Signs Date Time Temp Pulse Resp B/P Pulse Ox O2 Delivery O2 Flow Rate FiO2 06/25/16 08:59 Nasal Cannula 1.0 06/25/16 06:00 98.8 98 16 157/69 100 I&O- Last 24 Hours up to 6 AM 06/25/16 06:00 Intake Total 1740 ml Output Total 1025 ml Balance 715 ml MARZENA KAYE MD Jun 25, 2016 10:26
[2016-06-25] MEDS ORDERED: WARFARIN SOD 5 MG TAB PO ONE (17:00)
[2016-06-25 18:17] LABS: MEAN CORPUSCULAR HEMOGLOBIN 30.9 pg (27.0-33.0); MEAN CORPUSCULAR HGB CONC 32.5 g/dl (32.0-36.5); RED CELL DISTRIBUTION WIDTH 16.4 % (11.5-14.5); WHITE BLOOD COUNT 14.3 K/mm3 (4.0-10.0)
[2016-06-25] MEDS: ESCITALOPRAM OXALATE 10 MG TAB (LEXAPRO) PO SCH (20:45)
[2016-06-25] MEDS: LEVOTHYROXINE 0.112 MG TAB (112 MCG) PO SCH (20:45)
[2016-06-25] MEDS: ASPIRIN 81 MG ENTERIC TAB PO SCH (20:45)
[2016-06-25] MEDS: FOLIC ACID 1 MG TAB PO SCH (20:45)
[2016-06-25] MEDS: CYANOCOBALAMIN 500 MCG TAB PO SCH (20:46)
[2016-06-25 22:00] VITALS: BP 136/86
--- NOTE | 2016-06-25 22:24 | EDDOCDS ---
Physician Documentation [facility] Name: Martha Moore Age: 86 yrs Sex: Female : 1930 Arrival Date: 06/23/2016 Time: 16:28 Bed 13 Private MD: Bassem Cano Disposition: 06/23/16 19:14 Hospitalization ordered by Yaneth Pérez for Inpatient Admission. Preliminary diagnosis is Unspecified fracture of left femur - Comminuted intertrochanteric fracture of the left proximal femur. - Bed requested for 5 Henning. - Status is Inpatient Admission. jp6 - Condition is Stable. - Problem is new. - Symptoms are unchanged. Historical: - Allergies: no known allergies; - Home Meds: 1. acetaminophen 650 mg Oral tab 1 tab every 4-6 hours 2. aspirin 81 mg Oral tab 1 tab once daily 3. folic acid 1 mg Oral tab 1 tab once daily 4. Humira subcutaneous every 2 weeks 5. levothyroxine 112 mcg Oral cap 1 cap once daily 6. Lexapro 20 mg Oral tab 1 tab once daily 7. lisinopril 10 mg Oral tab 1 tab once daily 8. Methotrexate (Anti-Rheumatic) 2.5 mg Oral DsPk 4 tabs once wkly 9. tramadol 50 mg Oral tab 1 tab every 12 hours 10. Vitamin B-12 2,000 mcg Oral TbER daily 11. Vitamin [place] 51234 unit weekly - PMHx: Thyroid problem; Rheumatoid Arthritis; Osteoarthritis; Dementia; Hypertension; - PSHx: oopherectomy; - Social history: Smoking status: Patient states was never smoker of tobacco. No barriers to communication noted. - Family history: Not pertinent. - : The pt / caregiver states he / she is not on anticoagulants. Home medication list is obtained from the caregiver. - Exposure Risk Screening:: None identified. Vital Signs: 06/23 16:57 BP 170 / 42; Pulse 85; Resp 18; Temp 98.3(T); Pulse Ox 98% on R/A; Weight 44 kg / 97 jmk lbs; Height 5 ft. 197 in. (652.78 cm); 18:34 BP 192 / 80; Pulse 89; Resp 16; Pulse Ox 97% on R/A; jmk 19:07 BP 152 / 90 (auto/); jp6 19:08 BP 152 / 89; Pulse 77; jmk 19:30 BP 146 / 94 (auto/); jp6 19:38 BP 146 / 94; Pulse 84; Resp 16; Temp 99.4; Pulse Ox 98% on R/A; Pain 0/10; jp6 20:30 BP 186 / 77 (auto/); jp6 20:38 BP 210 / 87 (auto/); jp6 20:41 Pulse 84 MON; Pulse Ox 93% ; jp6 20:43 BP 174 / 73 (auto/); jp6 20:43 Pulse 84 MON; Pulse Ox 96% ; jp6 20:51 Pulse 82 MON; Pulse Ox 93% ; jp6 16:57 Body Mass Index 1.03 (44.00 kg, 652.78 cm) quinten MDM: 16:47 Financial registration complete. zo 16:59 [facility] [place] was scanned into [employer] and attached to record. zo 17:03 Cardiac Injury Profile Ordered. EDMS 17:03 Troponin Ordered. EDMS 17:03 CBC Ordered. EDMS 17:03 Basic Metabolic Profile Ordered. EDMS 17:04 Chest, 2 View (pa\E\lat) Ordered. EDMS 17:04 Hip,AP,LAT to include Pelvis Ordered. EDMS 17:04 Femur Ordered. EDMS 17:04 ECG WITH READING ER PHYS+CARDIAG ordered. EDMS 17:04 Knee, Complete Ordered. EDMS 17:04 CT Head Without Contrast Ordered. EDMS 17:05 Ribs-Uni Without PA Chest Ordered. EDMS 17:53 BED REQUEST+ADM ordered. EDMS 17:54 Pt & Aptt Ordered. EDMS 17:54 Type & Screen Ordered. EDMS 18:02 NS 0.9% 1000 ml IV at 100 mL/hr continuous ordered. bs6 18:02 Ondansetron 4 mg IVP once ordered. bs6 18:02 fentaNYL (PF) 25 mcg IVP once ordered. bs6 18:31 LIVER PROFILE Ordered. EDMS 19:41 Admission Orders was scanned into [employer] and attached to record. ml3 19:57 CARDIAC MARKER PANEL Ordered. EDMS 19:58 CARDIAC MARKER PANEL Ordered. EDMS 19:58 BLOOD CULTURES Ordered. EDMS 19:58 BLOOD CULTURES Ordered. EDMS 20:00 NPO FOR TEST/PROCEDURE ordered. EDMS 20:01 URINALYSIS Ordered. EDMS 20:01 URINE CULTURE Ordered. EDMS 20:03 Admission / Observation Status ordered. EDMS 20:04 COMPLETE BLOOD COUNT Ordered. EDMS 20:04 BASIC METABOLIC PROFILE Ordered. EDMS 20:04 MAGNESIUM LEVEL Ordered. EDMS 20:48 THYROID PROFILE Ordered. EDCT 06/24 08:47 T-Sheet-- Draft Copy was scanned into [employer] and attached to record. [facility] : ECG/EKG was scanned into [employer] and attached to record. Administered Medications: 06/23 18:35 Drug: Ondansetron 4 mg Route: IVP; Site: left wrist; [facility] 18:36 Drug: NS 0.9% 1000 ml Route: IV; Rate: 100 mL/hr; Site: left antecubital; [facility] 18:36 Drug: fentaNYL (PF) 25 mcg [fentanyl (PF) 50 mcg/mL injection solution (0.5 mL)] Route: [facility] IVP; Site: left wrist; Signatures: Dispatcher [id number] Dallas Matthews,RN RN k Kamila Leach, Lang Reg Parker Castro, [employer] Gate Tender Unit ml3 Jass Browning Brogan, DO DO bs6 Noy Muse,RN RN 6 Leann Philippe The chart was reviewed and I authenticate all verbal orders and agree with the evaluation and treatment provided.Corrections: (The following items were deleted from the chart) 18:31 17:54 LIVER PROFILE+LAB ordered. EDCT EDMS 18:41 17:54 PROTHROMBIN TIME PROFILE\E\INR+LAB ordered. EDCT EDMS 20:02 20:00 REGULAR DIET ordered. EDCT EDMS 20:48 20:11 THYROID PROFILE ordered. EDCT EDMS Attachments: 16:59 [facility] Agreement zo 19:41 Admission Orders ml3 06/24 08:47 T-Sheet-- Draft Copy [facility] :23 ECG/EKG gb Chart Complete MTDD
--- NOTE | 2016-06-25 22:24 | EDDOCDS ---
Physician Documentation [facility] Name: Martha Moore Age: 86 yrs Sex: Female : 1930 Arrival Date: 06/23/2016 Time: 16:28 Bed 13 Private MD: Bassem Cano Disposition: 06/23/16 19:14 Hospitalization ordered by Yaneth Pérez for Inpatient Admission. Preliminary diagnosis is Unspecified fracture of left femur - Comminuted intertrochanteric fracture of the left proximal femur. - Bed requested for 5 Henning. - Status is Inpatient Admission. jp6 - Condition is Stable. - Problem is new. - Symptoms are unchanged. Historical: - Allergies: no known allergies; - Home Meds: 1. acetaminophen 650 mg Oral tab 1 tab every 4-6 hours 2. aspirin 81 mg Oral tab 1 tab once daily 3. folic acid 1 mg Oral tab 1 tab once daily 4. Humira subcutaneous every 2 weeks 5. levothyroxine 112 mcg Oral cap 1 cap once daily 6. Lexapro 20 mg Oral tab 1 tab once daily 7. lisinopril 10 mg Oral tab 1 tab once daily 8. Methotrexate (Anti-Rheumatic) 2.5 mg Oral DsPk 4 tabs once wkly 9. tramadol 50 mg Oral tab 1 tab every 12 hours 10. Vitamin B-12 2,000 mcg Oral TbER daily 11. Vitamin D Oral 67106 unit weekly - PMHx: Thyroid problem; Rheumatoid Arthritis; Osteoarthritis; Dementia; Hypertension; - PSHx: oopherectomy; - Social history: Smoking status: Patient states was never smoker of tobacco. No barriers to communication noted. - Family history: Not pertinent. - : The pt / caregiver states he / she is not on anticoagulants. Home medication list is obtained from the caregiver. - Exposure Risk Screening:: None identified. Vital Signs: 06/23 16:57 BP 170 / 42; Pulse 85; Resp 18; Temp 98.3(T); Pulse Ox 98% on R/A; Weight 44 kg / 97 jmk lbs; Height 5 ft. 197 in. (652.78 cm); 18:34 BP 192 / 80; Pulse 89; Resp 16; Pulse Ox 97% on R/A; jmk 19:07 BP 152 / 90 (auto/); jp6 19:08 BP 152 / 89; Pulse 77; jmk 19:30 BP 146 / 94 (auto/); jp6 19:38 BP 146 / 94; Pulse 84; Resp 16; Temp 99.4; Pulse Ox 98% on R/A; Pain 0/10; jp6 20:30 BP 186 / 77 (auto/); jp6 20:38 BP 210 / 87 (auto/); jp6 20:41 Pulse 84 MON; Pulse Ox 93% ; jp6 20:43 BP 174 / 73 (auto/); jp6 20:43 Pulse 84 MON; Pulse Ox 96% ; jp6 20:51 Pulse 82 MON; Pulse Ox 93% ; jp6 16:57 Body Mass Index 1.03 (44.00 kg, 652.78 cm) quinten MDM: 16:47 Financial registration complete. zo 16:59 [facility] [place] Payment Agreement was scanned into [employer] and attached to record. zo 17:03 Cardiac Injury Profile Ordered. EDMS 17:03 Troponin Ordered. EDMS 17:03 CBC Ordered. EDMS 17:03 Basic Metabolic Profile Ordered. EDMS 17:04 Chest, 2 View (pa\E\lat) Ordered. EDMS 17:04 Hip,AP,LAT to include Pelvis Ordered. EDMS 17:04 Femur Ordered. EDMS 17:04 ECG WITH READING ER PHYS+CARDIAG ordered. EDMS 17:04 Knee, Complete Ordered. EDMS 17:04 CT Head Without Contrast Ordered. EDMS 17:05 Ribs-Uni Without PA Chest Ordered. EDMS 17:53 BED REQUEST+ADM ordered. EDMS 17:54 Pt & Aptt Ordered. EDMS 17:54 Type & Screen Ordered. EDMS 18:02 NS 0.9% 1000 ml IV at 100 mL/hr continuous ordered. bs6 18:02 Ondansetron 4 mg IVP once ordered. bs6 18:02 fentaNYL (PF) 25 mcg IVP once ordered. bs6 18:31 LIVER PROFILE Ordered. EDMS 19:41 Admission Orders was scanned into [employer] and attached to record. ml3 19:57 CARDIAC MARKER PANEL Ordered. EDMS 19:58 CARDIAC MARKER PANEL Ordered. EDMS 19:58 BLOOD CULTURES Ordered. EDMS 19:58 BLOOD CULTURES Ordered. EDMS 20:00 NPO FOR TEST/PROCEDURE ordered. EDMS 20:01 URINALYSIS Ordered. EDMS 20:01 URINE CULTURE Ordered. EDMS 20:03 Admission / Observation Status ordered. EDMS 20:04 COMPLETE BLOOD COUNT Ordered. EDMS 20:04 BASIC METABOLIC PROFILE Ordered. EDMS 20:04 MAGNESIUM LEVEL Ordered. EDMS 20:48 THYROID PROFILE Ordered. EDKS 06/24 08:47 T-Sheet-- Draft Copy was scanned into [employer] and attached to record. [facility] : ECG/EKG was scanned into [employer] and attached to record. Administered Medications: 06/23 18:35 Drug: Ondansetron 4 mg Route: IVP; Site: left wrist; [facility] 18:36 Drug: NS 0.9% 1000 ml Route: IV; Rate: 100 mL/hr; Site: left antecubital; [facility] 18:36 Drug: fentaNYL (PF) 25 mcg [fentanyl (PF) 50 mcg/mL injection solution (0.5 mL)] Route: [facility] IVP; Site: left wrist; Signatures: Dispatcher [employer] Dallas Matthews,RN RN k Kamila Leach, Lang Reg Parker Castro, Geriatric Nurse Practitioner Unit ml3 Jass Browning Brogan, DO DO bs6 Noy Muse,RN RN 6 Leann Philippe The chart was reviewed and I authenticate all verbal orders and agree with the evaluation and treatment provided.Corrections: (The following items were deleted from the chart) 18:31 17:54 LIVER PROFILE+LAB ordered. EDKS EDMS 18:41 17:54 PROTHROMBIN TIME PROFILE\E\INR+LAB ordered. EDKS EDMS 20:02 20:00 REGULAR DIET ordered. EDKS EDMS 20:48 20:11 THYROID PROFILE ordered. EDKS EDMS Attachments: 16:59 [facility] Payment Agreement zo 19:41 Admission Orders ml3 06/24 08:47 T-Sheet-- Draft Copy [facility] :23 ECG/EKG gb Chart Complete MTDD
--- NOTE | 2016-06-25 22:24 | EDDOCDS ---
Nurse's Notes [facility] Name: Kj Clement Age: 86 yrs Sex: Female : 1930 Arrival Date: 06/23/2016 Time: 16:28 Bed 13 Private MD: Bassem Cano Diagnosis: Unspecified fracture of left femur-Comminuted intertrochanteric fracture of the left proximal femur Presentation: 06/23 16:52 Presenting complaint: Patient states: attempted to stand and tipped to side and fell [facility] last night .injure left hip and lower ext. unwitnessed. no LOC. able to bear weight. Adult Sepsis Screening: The patient does not have new or worsening altered mentation. Patient's respiratory rate is less than 22. Systolic blood pressure is greater than 100. Patient has a qSOFA score of 0- Negative Sepsis Screen. Suicide/Homicide risk assessment- the patient denies having any suicidal and/or homicidal ideations and does not present with any other emotional, behavioral or mental health complaints. Status: Patient is not a clinical services professional or dependent. Transition of care: patient was not received from another setting of care. 16:52 Acuity: TAYLOR Level 4 [facility] 16:52 Method Of Arrival: Ambulance [facility] Triage Assessment: 16:57 General: Appears per are provider, overall presentation unchnged. Pain: Denies pain. [facility] Musculoskeletal: No deficits noted. Historical: - Allergies: no known allergies; - Home Meds: 1. acetaminophen 650 mg Oral tab 1 tab every 4-6 hours 2. aspirin 81 mg Oral tab 1 tab once daily 3. folic acid 1 mg Oral tab 1 tab once daily 4. Humira subcutaneous every 2 weeks 5. levothyroxine 112 mcg Oral cap 1 cap once daily 6. Lexapro 20 mg Oral tab 1 tab once daily 7. lisinopril 10 mg Oral tab 1 tab once daily 8. Methotrexate (Anti-Rheumatic) 2.5 mg Oral DsPk 4 tabs once wkly 9. tramadol 50 mg Oral tab 1 tab every 12 hours 10. Vitamin B-12 2,000 mcg Oral TbER daily 11. Vitamin [place] 46590 unit weekly - PMHx: Thyroid problem; Rheumatoid Arthritis; Osteoarthritis; Dementia; Hypertension; - PSHx: oopherectomy; - Social history: Smoking status: Patient states was never smoker of tobacco. No barriers to communication noted. - Family history: Not pertinent. - : The pt / caregiver states he / she is not on anticoagulants. Home medication list is obtained from the caregiver. - Exposure Risk Screening:: None identified. Screenin:02 Screening information is obtained from family members. Fall risk: At risk due to age. [facility] Assistance ADL's: Requires assistance with meal preparation, this assistance is provided by family members, bathing, assistance is provided by family members, dressing, assistance is provided by family members, toileting, assistance is provided by family members, ambulation, assistance is provided by family members, housework, assistance is provided by family members, medication administration, assistance is provided by care providers. Abuse/DV Screen: The patient / caregiver reports he/she is: not in a situation that causes fear, pain or injury. Nutritional screening: No deficits noted. Advance Directives: Currently, there is a health care proxy, There is no active DNR order. There is no living will. There is an active Power of Jewel Bearing [place], [place]. home support is adequate. Assessment: 17:02 General: Appears ambulance arrival. without shortening or rotation. pulses intact x 2. [facility] 18:34 General: Appears non verbal. grimaces with movement of leg. family attentive at side.. [facility] 19:08 General: Appears Unable to volunteer pain level. overall presentation UNCHANGED FROM [facility] ARRIVAL. vs ASMNOTED. 19:39 Reassessment: Patient appears in no apparent distress at this time. Patient states jp6 symptoms have not improved. General: Appears in no apparent distress, slender, Behavior is cooperative, quiet. Pain: Noted to be sleeping. Neurological: No deficits noted. Level of Consciousness is confused, Oriented to confused x3. EENT: No deficits noted. Cardiovascular: Capillary refill < 3 seconds Heart tones S1 S2 Edema is absent. Pulses are all present. Rhythm is regular. Respiratory: No deficits noted. Airway is patent Respiratory effort is even, unlabored, Respiratory pattern is regular, symmetrical, Breath sounds are clear bilaterally. GI: No deficits noted. : No deficits noted. Derm: Skin is intact, Skin is dry, Skin is pink, warm & dry. Musculoskeletal: Circulation, motion, and sensation intact Capillary refill < 3 seconds Range of motion limited in left hip. Vital Signs: 16:57 BP 170 / 42; Pulse 85; Resp 18; Temp 98.3(T); Pulse Ox 98% on R/A; Weight 44 kg; Height [facility] 5 ft. 197 in. (652.78 cm); 18:34 BP 192 / 80; Pulse 89; Resp 16; Pulse Ox 97% on R/A; jmk 19:07 BP 152 / 90 (auto/); jp6 19:08 BP 152 / 89; Pulse 77; jmk 19:30 BP 146 / 94 (auto/); jp6 19:38 BP 146 / 94; Pulse 84; Resp 16; Temp 99.4; Pulse Ox 98% on R/A; Pain 0/10; jp6 20:30 BP 186 / 77 (auto/); jp6 20:38 BP 210 / 87 (auto/); jp6 20:41 Pulse 84 MON; Pulse Ox 93% ; jp6 20:43 BP 174 / 73 (auto/); jp6 20:43 Pulse 84 MON; Pulse Ox 96% ; jp6 20:51 Pulse 82 MON; Pulse Ox 93% ; jp6 16:57 Body Mass Index 1.03 (44.00 kg, 652.78 cm) [facility] Vitals: 16:57 Log In Time N/A - ambulance arrival. [facility] ED Course: 16:29 Patient visited by Pamela Kay. mt4 16:29 Bassem Cano is Private Physician. mt4 16:29 Patient moved to Waiting mt4 16:30 Patient moved to 13 mt4 16:39 Imelda Linder DO is [facility]. bs6 16:39 Dasha Pineda MD is Attending Physician. bs6 16:39 Patient visited by Imelda Linder DO. bs6 16:39 Patient visited by Imelda Linder DO. bs6 16:54 Triage Initiated jmk 16:59 [facility] Payment Agreement was scanned into [employer] and attached to record. zo 17:02 The patient / caregiver is instructed regarding the plan of care and ED course. jmk 17:13 Patient visited by Jonny Beltre PCA. jlf 17:13 Patient visited by Jonny Beltre PCA. jlf 17:13 EKG done. (by ED staff). Reviewed by Dasha Pineda MD. jlf 17:16 Troponin Sent. jmk 17:16 CBC Sent. jmk 17:16 Basic Metabolic Profile Sent. jmk 17:16 Cardiac Injury Profile Sent. jmk 18:13 Type & Screen Sent. jmk 18:14 Pt & Aptt Sent. jmk 18:21 CT Head Without Contrast Returned. EDMS 18:21 Chest, 2 View (pa\E\lat) Returned. EDMS 18:21 Femur Returned. EDMS 18:21 Knee, Complete Returned. EDMS 18:21 Ribs-Uni Without PA Chest Returned. EDMS 18:21 Hip,AP,LAT to include Pelvis Returned. EDMS 18:41 Patient visited by Jonny Beltre PCA. jlf 19:07 EKG-ADULT Returned. EDMS 19:10 Yaneth Pérez is Hospitalizing Provider. bs6 19:38 Noy Muse,RN is Primary Nurse. jp6 19:38 Patient visited by Noy Muse,BENNIE. jp6 19:39 Inserted saline lock: 20 gauge in left forearm. No procedures done that require jp6 assistance. 19:41 Admission Orders was scanned into [employer] and attached to record. ml3 21:01 Pulse ox on. NIBP on. jp6 21:01 Raymundo cath inserted 16 Fr. Balloon inflated. To gravity drainage. Urine specimen jp6 collected. returned cloudy urine. 21:11 URINE CULTURE Sent. jp6 21:11 URINALYSIS Sent. jp6 06/24 08:47 T-Sheet-- Draft Copy was scanned into [employer] and attached to record. [facility] 09:23 ECG/EKG was scanned into [employer] and attached to record. gb Administered Medications: 06/23 18:35 Drug: Ondansetron 4 mg Route: IVP; Site: left wrist; jmk 18:36 Drug: NS 0.9% 1000 ml Route: IV; Rate: 100 mL/hr; Site: left antecubital; jmk 18:36 Drug: fentaNYL (PF) 25 mcg [fentanyl (PF) 50 mcg/mL injection solution (0.5 mL)] Route: [facility] IVP; Site: left wrist; Order Results: Lab Order: Cardiac Injury Profile; SPEC'M 06/23/16 19:03 Test: CPK CREATINE PHOSPHOKINASE; Value: 224; Range: 26-192; Abnormal: Above high normal; Units: U/L; Status: F Test: CK-MB VALUE MASS; Value: 4.0; Range: 0.0-3.6; Abnormal: Above high normal; Units: NG/ML; Status: F Test: MB/CK RELATIVE INDEX; Value: 1.78; Range: < OR =4; Status: F Test Note: ; DIAGNOSIS CRITERIA MMB ng/ml Relative Index (RI) NON-AMI < or = 5 N/A HAUSER ZONE > 5 < or = 4 AMI > 5 > 4 Lab Order: Troponin; [facility] 06/23/16 19:03 Test: TROPONIN I; Value: 0.02; Range: < 0.10; Units: NG/ML; Status: F Test Note: ; Troponin I Reference Interval for [employer] LOCI: 99th Percentile= 0.00-0.045 ng/ml Risk Stratification: <= 0.10 ng/ml Decreased Risk for Adverse Clinical Events. 0.10-1.50 ng/ml Increased Risk for Adverse Clinical Events. Evaluation of additional criterion and/or repeat testing in 2-6 hours is suggested to rule out myocardial damage. >= 1.50 ng/ml Indicative of Myocardial Injury. Lab Order: CBC; [facility] 06/23/16 17:15 Test: WHITE BLOOD COUNT; Value: 17.2; Range: 4.0-10.0; Abnormal: Above high normal; Units: K/mm3; Status: F Test: RED BLOOD COUNT; Value: 3.08; Range: 4.00-5.40; Abnormal: Below low normal; Units: M/mm3; Status: F Test: HEMOGLOBIN; Value: 9.8; Range: 12.0-16.0; Abnormal: Below low normal; Units: g/dl; Status: F Test: HEMATOCRIT; Value: 30.0; Range: 36.0-47.0; Abnormal: Below low normal; Units: %; Status: F Test: MEAN CORPUSCULAR VOLUME; Value: 97.6; Range: 80.0-96.0; Abnormal: Above high normal; Units: fl; Status: F Test: MEAN CORPUSCULAR HEMOGLOBIN; Value: 31.7; Range: 27.0-33.0; Units: pg; Status: F Test: MEAN CORPUSCULAR HGB CONC; Value: 32.5; Range: 32.0-36.5; Units: g/dl; Status: F Test: RED CELL DISTRIBUTION WIDTH; Value: 14.2; Range: 11.5-14.5; Units: %; Status: F Test: PLATELET COUNT, AUTOMATED; Value: 311; Range: 150-450; Units: k/mm3; Status: F Lab Order: Basic Metabolic Profile; [facility] 06/23/16 19:03 Test: GLUCOSE, FASTING; Value: 137; Range: 83-110; Abnormal: Above high normal; Units: MG/DL; Status: F Test: BLOOD UREA NITROGEN; Value: 21; Range: 7-18; Abnormal: Above high normal; Units: MG/DL; Status: F Test: CREATININE FOR GFR; Value: 0.69; Range: 0.55-1.02; Units: MG/DL; Status: F Test: GLOMERULAR FILTRATION RATE; Value: > 60.0; Range: >32; Status: F Test: SODIUM LEVEL; Value: 142; Range: 136-145; Units: MEQ/L; Status: F Test: POTASSIUM SERUM; Value: 4.4; Range: 3.5-5.1; Units: MEQ/L; Status: F Test: CHLORIDE LEVEL; Value: 107; Range: 98-107; Units: MEQ/L; Status: F Test: CARBON DIOXIDE LEVEL; Value: 28; Range: 21-32; Units: MEQ/L; Status: F Test: ANION GAP; Value: 7; Range: 8-16; Abnormal: Below low normal; Units: MEQ/L; Status: F Test: CALCIUM LEVEL; Value: 8.8; Range: 8.8-10.2; Units: MG/DL; Status: F Test Note: ; Units are mL/min/1.73 m2 Chronic Kidney Disease Staging per NKF: Stage I & II GFR >=60 Normal to Mildly Decreased Stage III GFR 30-59 Moderately Decreased Stage IV GFR 15-29 Severely Decreased Stage V GFR <15 Very Little GFR Left ESRD GFR <15 on RAZOR GRINDER Lab Order: Pt & Aptt; [facility] 06/23/16 19:03 Test: PROTHROMBIN TIME; Value: 12.1; Range: 12.3-14.5; Abnormal: Below low normal; Units: SECONDS; Status: F Test: INR; Value: 0.89; Status: F Test: PARTIAL THROMBOPLASTIN TIME; Value: 20.0; Range: 26.6-37.1; Abnormal: Below low normal; Units: SECONDS; Status: F Test Note: ; THERAPUTIC HUMAN INR VALUES INDICATIONS NORMAL RANGES PROPHYLAXIS/TREATMENT OF: VENOUS THROMBOSIS 2.0-3.0 PULMONARY EMBOLISM 2.0-3.0 PREVENTION OF SYSTEMIC EMBOLISM FROM: TISSUE HEART VALVES 2.0-3.0 ACUTE MYOCARDIAL INFARCTION 2.0-3.0 VALVULAR HEART DISEASE 2.0-3.0 ATRIAL FIBRILLATION 2.0-3.0 MECHANICAL VALVES(HIGH RISK) 2.5-3.5 RECURRENT MYOCARDIAL INFARCTION 2.5-3.5 Lab Order: Type & Screen; [facility] 06/23/16 19:03 Test: BLOOD TYPE; Value: A POS; Status: F Test: AB SCREEN (INDIRECT DELVIN)GEL; Value: NEGATIVE; Status: F Lab Order: LIVER PROFILE; [facility] 06/23/16 19:03 Test: AST/SGOT; Value: 20; Range: 15-37; Units: U/L; Status: F Test: ALT/SGPT; Value: 20; Range: 12-78; Units: U/L; Status: F Test: ALKALINE PHOSPHATASE; Value: 75; Range: 45-117; Units: U/L; Status: F Test: BILIRUBIN,TOTAL; Value: 0.5; Range: 0.2-1.0; Units: MG/DL; Status: F Test: BILIRUBIN,DIRECT; Value: 0.2; Range: 0.0-0.2; Units: MG/DL; Status: F Test: TOTAL PROTEIN; Value: 6.8; Range: 6.4-8.2; Units: GM/DL; Status: F Test: ALBUMIN; Value: 3.4; Range: 3.2-5.2; Units: GM/DL; Status: F Test: ALBUMIN/GLOBULIN RATIO; Value: 1.00; Range: 1.00-1.93; Status: F Lab Order: URINALYSIS; [facility] 06/23/16 21:09 Test: APPEARANCE, URINE; Value: CLOUDY; Range: CLEAR; Abnormal: Above high normal; Status: F Test: COLOR, URINE; Value: YELLOW; Range: YELLOW; Status: F Test: PH,URINE; Value: 5.0; Range: 5.0-9.0; Units: UNITS; Status: F Test: SPECIFIC GRAVITY URINE AUTO; Value: 1.016; Range: 1.002-1.035; Status: F Test: PROTEIN, URINE AUTO; Value: 1+; Range: NEGATIVE; Abnormal: Above high normal; Units: mg/dL; Status: F Test: GLUCOSE, URINE (UA) AUTO; Value: NEGATIVE; Range: NEGATIVE; Units: mg/dL; Status: F Test: KETONE, URINE AUTO; Value: NEGATIVE; Range: NEGATIVE; Units: mg/dL; Status: F Test: UROBILINOGEN, URINE AUTO; Value: 0.2; Range: 0.0-2.0; Units: mg/dL; Status: F Test: BILIRUBIN, URINE AUTO; Value: NEGATIVE; Range: NEGATIVE; Status: F Test: NITRITE, URINE AUTO; Value: POSITIVE; Range: NEGATIVE; Status: F Test: LEUKOCYTE ESTERASE, URINE AUTO; Value: 3+; Range: NEGATIVE; Abnormal: Above high normal; Status: F Test: BLOOD, URINE BLOOD; Value: 1+; Range: NEGATIVE; Abnormal: Above high normal; Status: F Test: WBC, URINE AUTO; Value: TNTC; Range: 0-3; Abnormal: Above high normal; Units: /HPF; Status: F Test: RBC, URINE AUTO; Value: 15; Range: 0-3; Abnormal: Above high normal; Units: /HPF; Status: F Test: BACTERIA, URINE AUTO; Value: 3+; Range: NEGATIVE; Abnormal: Above high normal; Status: F Test: SQUAMOUS EPITHELIAL CELL UR AU; Value: 2; Range: 0-6; Units: /HPF; Status: F Test: MUCUS, URINE; Value: SMALL; Range: NEGATIVE; Status: F Test: HYALINE CAST, URINE AUTO; Value: 0; Range: 0-1; Units: /LPF; Status: F Radiology Order: EKG-ADULT Test: EKG-ADULT REASON FOR EXAMINATION: Trauma; Stationary ECG Study; [facility] - ED; ; Test Date: 2016-06-23; Pat Name: KJ CLEMENT Department:; Room: -; Gender: F Igniter Capper: kiersten; : 1930 Requested By: IMELDA LINDER; Order Number: [id number] Reading MD: Mario Khan; Measurements; Intervals [place]; Rate: 87 P: 69; IN: 127 QRS: 36; QRSD: 78 T: 64; QT: 326; QTc: 393; Interpretive Statements; SINUS RHYTHM; LVH; NONSPECIFIC ST T-WAVE ABNORMALITY; SIMILAR TO 10/11/12; Electronically Signed On 06-23-2016 18:15:39 EST by Mario Khan; Radiology Order: Chest, 2 View (pa\E\lat) Test: Chest, 2 View (pa\E\lat) REASON FOR EXAMINATION: Trauma; Clinical: Trauma .; ; Comparison: 10/11/2012 .; ; Findings:; The mediastinum and cardiac silhouette are stable and within normal limits for; portable technique. The lung vargas are clear without acute consolidation,; effusion, or pneumothorax. Skeletal structures are intact.; ; Impression:; Normal portable chest x-ray; No acute cardiopulmonary process appreciated.; ; ; Signed by; Donaldo Canales MD 06/23/2016 05:52 P; Radiology Order: Hip,AP,LAT to include Pelvis Test: Hip,AP,LAT to include Pelvis REASON FOR EXAMINATION: Trauma; Clinical: Trauma.; ; Technique: AP view of the pelvis with AP and cross-table lateral views of the; left hip.; ; Findings:; There is a comminuted, displaced intertrochanteric fracture involving the left; proximal femur. Overlying soft tissue swelling and injury as well as vascular; injury cannot be excluded.; ; Impression:; Comminuted displaced left intertrochanteric fracture of the proximal femur.; Cannot exclude associated vascular or surrounding soft tissue injuries.; ; ; Signed by; Donaldo Canales MD 06/23/2016 05:59 P; Radiology Order: Femur Test: Femur REASON FOR EXAMINATION: Trauma; Clinical: Trauma.; ; Technique: AP and cross-table lateral views of the left femur.; ; Findings:; In conjunction with left hip series, there is a comminuted intertrochanteric; fracture involving the left proximal femur along with age-related degenerative; changes. No other fracture or dislocation is identified.; ; Impression:; Comminuted intertrochanteric fracture of the left proximal femur.; Degenerative changes to the hip and knee joints.; ; ; Signed by; Donaldo Canales MD 06/23/2016 05:55 P; Radiology Order: Knee, Complete Test: Knee, Complete REASON FOR EXAMINATION: Trauma; Clinical: Trauma.; ; Technique: Single AP view of the left knee.; ; Findings:; Osteopenia and degenerative changes including osteophytosis, subchondral; sclerosis and joint space narrowing noted. No obvious acute fracture in the; frontal projection.; ; Impression:; Osteopenia and degenerative changes.; ; ; Signed by; Donaldo Canales MD 06/23/2016 05:55 P; Radiology Order: Ribs-Uni Without PA Chest Test: Ribs-Uni Without PA Chest REASON FOR EXAMINATION: Trauma; Clinical: Trauma.; ; Technique: Two AP views of the left hemithorax.; ; Findings:; Evidence to suggest old posterior eight - tenth rib fractures. No obvious acute; left rib fracture identified.; ; Impression:; Old healed left eighth - tenth rib fractures.; No obvious acute rib fracture identified.; ; ; Signed by; Donaldo Canales MD 06/23/2016 05:57 P; Radiology Order: CT Head Without Contrast Test: CT Head Without Contrast REASON FOR EXAMINATION: Trauma; Clinical: Trauma.; ; Comparison: 07/31/2015 .; ; Findings:; Age-related atrophy and microvascular ischemic changes are appreciated. The; ventricles and sulci are symmetric. Hauser-white differentiation is maintained.; There is no evidence for acute intracranial hemorrhage, mass/mass effect,; pathology or infarction. No extra-axial fluid collection. Calvarium is intact.; Paranasal sinuses and mastoid air cells are clear.; ; Impression:; Age related atrophy and microvascular ischemic changes.; No acute intracranial hemorrhage, infarction, or mass/mass effect.; ; ; Signed by; Donaldo Canales MD 06/23/2016 05:33 P; Outcome: 19:14 Decision to Hospitalize by Provider. bs6 21:01 Discharge Assessment: Patient confused, Oriented to none Patient Patient able to jp6 independently bathe himself/herself with little or no assistance, to independently dress himself/herself with little or no assistance, to independently attend to toileting needs with little or no assistance, to independently transfer in/out of bed and/or chair with little or no assistance, patient administered narcotics - yes. The following High Risk Discharge criteria are identified: None. Admitted to Med/Surg accompanied by tech, via stretcher, with chart. Condition: unchanged. No special radiology studies were completed. Admission hand-off: Report Faxed Fax receipt verified by Janell Henning. Property :Personal belongings accompany Pt. 21:22 Patient left the ED. jp6 Signatures: Dispatcher [employer] EDMD Dallas Aquino,RN RN Kamila Henry, Reg Reg gb Gloria, Parker, [employer] Set Up Operator Radial Unit ml3 Jass Browning Melissa mt4 Jonny Beltre, DIRECTOR [employer] DIRECTOR [employer] jlf Imelda Linder, DO DO bs6 Noy Muse,RN RN jp6 Leann Philippe Corrections: (The following items were deleted from the chart) 18:31 18:13 LIVER PROFILE+LAB sent. [facility] 18:41 18:14 PROTHROMBIN TIME PROFILE\E\INR+LAB sent. [facility] Chart Complete MTDD
[2016-06-26 00:15] LABS: MEAN CORPUSCULAR HEMOGLOBIN 31.5 pg (27.0-33.0); MEAN CORPUSCULAR HGB CONC 33.3 g/dl (32.0-36.5); MEAN CORPUSCULAR VOLUME 94.8 fl (80.0-96.0); RED CELL DISTRIBUTION WIDTH 16.1 % (11.5-14.5)
[2016-06-26 03:29] LABS: MEAN CORPUSCULAR HEMOGLOBIN 30.8 pg (27.0-33.0); MEAN CORPUSCULAR HGB CONC 32.5 g/dl (32.0-36.5); MEAN CORPUSCULAR VOLUME 94.8 fl (80.0-96.0); RED CELL DISTRIBUTION WIDTH 16.8 % (11.5-14.5); WHITE BLOOD COUNT 12.2 K/mm3 (4.0-10.0)
[2016-06-26 06:00] VITALS: BP 144/74
[2016-06-26 07:08] LABS: MEAN CORPUSCULAR HEMOGLOBIN 31.7 pg (27.0-33.0); MEAN CORPUSCULAR HGB CONC 33.4 g/dl (32.0-36.5); MEAN CORPUSCULAR VOLUME 95.1 fl (80.0-96.0); RED CELL DISTRIBUTION WIDTH 15.9 % (11.5-14.5)
[2016-06-26 07:36] LABS: ANION GAP 8 MEQ/L (8-16); BLOOD UREA NITROGEN 17 MG/DL (7-18); CALCIUM LEVEL 8.4 MG/DL (8.8-10.2); CARBON DIOXIDE LEVEL 30 MEQ/L (21-32); CHLORIDE LEVEL 105 MEQ/L (98-107); CREATININE FOR GFR 0.39 MG/DL (0.55-1.02); GLOMERULAR FILTRATION RATE > 60.0 (>32); GLUCOSE, FASTING 97 MG/DL (83-110); MAGNESIUM LEVEL 1.9 MG/DL (1.8-2.4); POTASSIUM SERUM 3.4 MEQ/L (3.5-5.1); SODIUM LEVEL 143 MEQ/L (136-145)
[2016-06-26] MEDS: SENOKOT S TAB PO SCH ×2 (09:04→21:32)
[2016-06-26] MEDS: PANTOPRAZOLE 40MG TAB (PROTONIX) PO SCH (09:04)
[2016-06-26] MEDS: MIRALAX *UNIT DOSE* 17GM PACKET PO SCH (09:04)
[2016-06-26] MEDS: cefTRIAXone SOD 1 GM in D5W MINI-BAG PLUS 50 ML IV SCH (09:04)
[2016-06-26] MEDS ORDERED: POTASSIUM CHLORIDE 10 MEQ SR TABLET PO ONE (09:15)
[2016-06-26 09:40] LABS: MEAN CORPUSCULAR HEMOGLOBIN 31.2 pg (27.0-33.0); MEAN CORPUSCULAR HGB CONC 32.8 g/dl (32.0-36.5); MEAN CORPUSCULAR VOLUME 95.1 fl (80.0-96.0); RED CELL DISTRIBUTION WIDTH 15.8 % (11.5-14.5); WHITE BLOOD COUNT 12.6 K/mm3 (4.0-10.0)
--- NOTE | 2016-06-26 11:51 | IPN ---
DATE: 06/26/2016 Martha was seen while rounding for the hospitalist. She was admitted with left intertrochanteric fracture, had acute blood loss anemia secondary to presumed bleeding around the fracture site, no active bleeding was seen, apparently had some heme positive stool. Received 2 units of blood yesterday. PHYSICAL EXAMINATION: She is nonverbal, looks in no distress. VITAL SIGNS: Stable, blood pressure 144/72, pulse 62. LUNGS: Clear. HEART: Regular rhythm. ABDOMEN: Soft, nontender. No peripheral edema. LABORATORY DATA: Hemoglobin is 9.2, stable from yesterday. Sodium 143, potassium 3.4, BUN 17, creatinine 0.4, glucose 97. Urine grew out Escherichia (E) coli, 100,000 colonies. I was told that her stool was positive for occult blood but I do not see where occult blood was actually checked so I think I misunderstood that discussion. IMPRESSION: 1. Status post hip fracture, per orthopedics. Anticoagulation per orthopedics. 2. Escherichia (E) coli urinary tract infection (UTI). She is on ceftriaxone. Will discontinue this and put her on oral antibiotic with Keflex. 3. Hypothyroidism. Continue current dose of Levothroid. 4. Alzheimer's disease. Advanced/stable. 5. Hypertension. Blood pressure is under good control at this time with her antihypertensives all held. 6. Acute blood loss anemia. Hemoglobin is stable. Suspect is related to the fracture, I do not see any signs of any active bleeding. Followup complete blood count (CBC) has been ordered for tomorrow.
[2016-06-26] MEDS: CEPHALEXIN 500 MG CAP PO SCH ×2 (13:33→21:33)
[2016-06-26 14:00] VITALS: BP 138/63
[2016-06-26] MEDS ORDERED: METHOTREXATE 2.5 MG TAB (J8610) PO SCH (18:00)
[2016-06-26] MEDS: VITAMIN D 50,000 UNITS CAPSULE (ERGOCALCIFEROL 1.25MG) PO SCH (18:42)
[2016-06-26] MEDS: CYANOCOBALAMIN 500 MCG TAB PO SCH (21:32)
[2016-06-26] MEDS: FOLIC ACID 1 MG TAB PO SCH (21:32)
[2016-06-26] MEDS: ACETAMINOPHEN TAB 650MG DOSE (2X325MG) PO PRN (21:33)
[2016-06-26] MEDS: LEVOTHYROXINE 0.112 MG TAB (112 MCG) PO SCH (21:33)
[2016-06-26] MEDS: ASPIRIN 81 MG ENTERIC TAB PO SCH (21:33)
[2016-06-26] MEDS: ESCITALOPRAM OXALATE 10 MG TAB (LEXAPRO) PO SCH (21:33)
[2016-06-26 22:00] VITALS: BP 146/67
[2016-06-27 06:00] VITALS: BP 185/81
[2016-06-27 06:58] LABS: MEAN CORPUSCULAR HEMOGLOBIN 31.1 pg (27.0-33.0); MEAN CORPUSCULAR HGB CONC 32.7 g/dl (32.0-36.5); RED CELL DISTRIBUTION WIDTH 16.1 % (11.5-14.5); WHITE BLOOD COUNT 11.4 K/mm3 (4.0-10.0)
[2016-06-27 07:01] LABS: INR 1.02
[2016-06-27 07:21] LABS: ANION GAP 6 MEQ/L (8-16); BLOOD UREA NITROGEN 20 MG/DL (7-18); CALCIUM LEVEL 8.4 MG/DL (8.8-10.2); CARBON DIOXIDE LEVEL 29 MEQ/L (21-32); CHLORIDE LEVEL 107 MEQ/L (98-107); CREATININE FOR GFR 0.41 MG/DL (0.55-1.02); GLOMERULAR FILTRATION RATE > 60.0 (>32); GLUCOSE, FASTING 111 MG/DL (83-110); POTASSIUM SERUM 4.4 MEQ/L (3.5-5.1); SODIUM LEVEL 142 MEQ/L (136-145)
[2016-06-27] MEDS: SENOKOT S TAB PO SCH ×2 (08:54→21:13)
[2016-06-27] MEDS: ACETAMINOPHEN TAB 650MG DOSE (2X325MG) PO PRN ×2 (08:54→16:58)
[2016-06-27] MEDS: CEPHALEXIN 500 MG CAP PO SCH ×2 (08:54→21:13)
[2016-06-27] MEDS: PANTOPRAZOLE 40MG TAB (PROTONIX) PO SCH (08:54)
[2016-06-27] MEDS: MIRALAX *UNIT DOSE* 17GM PACKET PO SCH (08:54)
[2016-06-27 14:00] VITALS: BP 177/72
--- NOTE | 2016-06-27 15:15 | IPNPDOC ---
Text Note Date of Service The patient was seen on 06/27/16 at 15:14. NOTE Subjective: Does not appear to be in distress. No overnight changes. Objective: Vitals: (see below) General: No acute distress, laying comfortably in bed. HEENT: Moist mucous membranes. Neck: No JVD or lymphadenopathy Cardiac: RRR, No murmurs Pulm: Clear to auscultation b/l. No wheezing, rhonchi Abd: NT/ND + BS Ext: No edema or cyanosis. LLE at the hip region - bandage clean and intact. No active bleeding noted. Swelling noted. Distal pulses intact. Labs (see below) Images: CT Head 06/23/16 Impression: Age related atrophy and microvascular ischemic changes. No acute intracranial hemorrhage, infarction, or mass/mass effect. Knee x ray 06/23/16 Impression:Osteopenia and degenerative changes. Rib X ray 06/23/16 Impression: Old healed left eighth - tenth rib fractures. No obvious acute rib fracture identified. Hip/pelvis x ray 06/23/16 Impression: Comminuted displaced left intertrochanteric fracture of the proximal femur. Cannot exclude associated vascular or surrounding soft tissue injuries. Assessment/Plan 1. POD 3 s/p left intertrochanteric fx repair with ross placement. DVT prophy and pain management per orthopedics 2. Acute anemia - s/p 2U PRBC. Hb stable now. May be related to recent surg. Occult blood test. Cont to monitor. 3. Hypothyroidism- continue Synthroid 4. Rheumatoid arthritis- continue home meds 5. Osteoporosis- continue meds 6. Advanced Alzheimer's dementia 7. Hypertension- continue home meds 8. DVT prophylaxis- Coumadin per ortho. VS,Fishbone, I+O VS, Fishbone, I+O Laboratory Tests 06/27/16 06:29 Calcium Level 8.4 L, Red Blood Count 2.94 L, Mean Corpuscular Volume 95.0, Mean Corpuscular Hemoglobin 31.1, Mean Corpuscular Hemoglobin Concent 32.7, Red Cell Distribution Width 16.1 H Vital Signs Date Time Temp Pulse Resp B/P Pulse Ox O2 Delivery O2 Flow Rate FiO2 06/27/16 06:00 98.9 80 14 185/81 96 Room Air 06/25/16 17:53 1.0 I&O- Last 24 Hours up to 6 AM 06/27/16 06:00 Intake Total 1920 ml Balance 1920 ml MARZENA KAYE MD Jun 27, 2016 15:15
[2016-06-27] MEDS ORDERED: WARFARIN SOD 5 MG TAB PO ONE (17:00)
--- NOTE | 2016-06-27 17:28 | ER ---
DATE OF CONSULTATION: 06/23/2016 She is an 86-year-old female who has a history of dimentia, hypothyroid, hypertension in an unusual state of health which is minimally ambulatory who fell from her chair yesterday and presented to the emergency room (ER) today with a left proximal femur fracture, introchanteric variant. Denies other significant past medical history and no allergies. She is cared for my her daughters and her granddaughter. On exam, she is not alert and oriented. She is responsive to pain. She has tenderness to palpation left hip and left lower extremity shortening external rotation. Her legs are well perfused. No obvious tenderness to palpation anywhere else on her musculoskeletal exam. X-rays demonstrate a displaced left proximal femur intertrochanteric fracture, unstable variant. Recommendations from an orthopedic standpoint is surgical intervention with intramuscular (IM) fixation, likely Gamma nail. Also recommend hospitalist admission and medical management preoperative clearance. The current plan is for the operating room tomorrow morning, second case. Nothing by mouth after midnight.
--- NOTE | 2016-06-27 20:18 | RO ---
DATE OF PROCEDURE: 06/24/2016 PREPROCEDURE DIAGNOSIS: Left proximal femur intertrochanteric fracture. POSTPROCEDURE DIAGNOSIS: Left proximal femur intertrochanteric fracture. PROCEDURE: Left hip open reduction internal fixation with a long Gamma nail. SURGEON: Dr. Loc Dobson ADVERTISING COLUMNIST: None. ANESTHESIA: Spinal anesthesia with sedation. ANESTHESIOLOGIST: Dr. Silverman NUCLEAR REACTOR TECHNICIAN: Jose Lewis BLOOD LOSS: 150 mL. COMPLICATIONS: None. INDICATIONS: An 86-year-old female with an unstable proximal femur fracture on the left side. After discussion of the risks and benefits of the operative intervention with the family, the family elected to proceed. DESCRIPTION OF PROCEDURE: The patient was met in the preoperative holding area, the operative site was initialed by the surgeon, IV access was verified, consent was verified. She was taken to the operative suite where she was prepped and draped in the usual sterile fashion on the fracture table with her left lower extremity in traction and her right lower extremity externally abducted and flexed position. Preoperative imaging was used to establish a reduced fracture pattern. Once this was done, a formal time-out was performed, IV antibiotics were infused. A small longitudinal incision was made just proximal to the greater trochanter, and this was taken through the level of the tensor fascia. Guidewire was placed into the posterior superior greater trochanter down the central portion of the canal. The proximal femur was reamed and the position of the guidewire and reamer was verified in the AP and lateral planes to verify appropriate approach to the femoral shaft. A ball-tip guidewire was placed down the center of the femur and reamed successively to 11 with minimal chatter. A long Gamma nail 345 mm in length was placed without difficulty, and the head screw was placed in the center-center position, again without difficulty. Once the head screw was in place, which was 90 mm in length, we used a compression mechanism on the screw to help reduce the fracture fragments a little bit more. We placed a proximal set screw in the nail and then we placed one distal interlock screw without difficulty. Postoperative x-rays were taken in the AP and lateral plane at the distal femur and proximal hip and found to be in acceptable position. The femur moved as a unit. The wounds were irrigated and closed in a standard sterile fashion. She was awakened and taken to the recovery room in stable condition. Postoperative plan will be protected weightbearing and pain control and with a plan for discharge to assisted care.
[2016-06-27] MEDS: LEVOTHYROXINE 0.112 MG TAB (112 MCG) PO SCH (21:13)
[2016-06-27] MEDS: LISINOPRIL 10 MG TAB PO SCH (21:13)
[2016-06-27] MEDS: ESCITALOPRAM OXALATE 10 MG TAB (LEXAPRO) PO SCH (21:14)
[2016-06-27] MEDS: CYANOCOBALAMIN 500 MCG TAB PO SCH (21:14)
[2016-06-27] MEDS: FOLIC ACID 1 MG TAB PO SCH (21:14)
[2016-06-27] MEDS: ASPIRIN 81 MG ENTERIC TAB PO SCH (21:14)
[2016-06-27 22:00] VITALS: BP 134/62
[2016-06-28 06:00] VITALS: BP 139/60
[2016-06-28 06:58] LABS: MEAN CORPUSCULAR HEMOGLOBIN 30.9 pg (27.0-33.0); MEAN CORPUSCULAR VOLUME 93.7 fl (80.0-96.0); RED CELL DISTRIBUTION WIDTH 15.7 % (11.5-14.5); WHITE BLOOD COUNT 8.2 K/mm3 (4.0-10.0)
[2016-06-28 07:07] LABS: INR 1.17
[2016-06-28 07:12] LABS: ANION GAP 8 MEQ/L (8-16); BLOOD UREA NITROGEN 16 MG/DL (7-18); CALCIUM LEVEL 8.5 MG/DL (8.8-10.2); CARBON DIOXIDE LEVEL 26 MEQ/L (21-32); CHLORIDE LEVEL 106 MEQ/L (98-107); GLOMERULAR FILTRATION RATE > 60.0 (>32); GLUCOSE, FASTING 100 MG/DL (83-110); POTASSIUM SERUM 4.3 MEQ/L (3.5-5.1); SODIUM LEVEL 140 MEQ/L (136-145)
[2016-06-28] MEDS: MIRALAX *UNIT DOSE* 17GM PACKET PO SCH (09:00)
[2016-06-28] MEDS: SENOKOT S TAB PO SCH ×2 (09:00→20:47)
[2016-06-28] MEDS: ACETAMINOPHEN TAB 650MG DOSE (2X325MG) PO PRN ×2 (10:31→17:14)
[2016-06-28] MEDS: PANTOPRAZOLE 40MG TAB (PROTONIX) PO SCH (10:31)
[2016-06-28] MEDS: CEPHALEXIN 500 MG CAP PO SCH ×2 (10:31→20:47)
[2016-06-28 14:00] VITALS: BP 121/58
--- NOTE | 2016-06-28 16:04 | IPNPDOC ---
Text Note Date of Service The patient was seen on 06/28/16 at 16:03. NOTE Subjective: Does not appear to be in distress. No overnight changes. Objective: Vitals: (see below) General: No acute distress, laying comfortably in bed. HEENT: Moist mucous membranes. Neck: No JVD or lymphadenopathy Cardiac: RRR, No murmurs Pulm: Clear to auscultation b/l. No wheezing, rhonchi Abd: NT/ND + BS Ext: No edema or cyanosis. LLE at the hip region - bandage clean and intact. No active bleeding noted. Swelling noted. Distal pulses intact. Labs (see below) Images: CT Head 06/23/16 Impression: Age related atrophy and microvascular ischemic changes. No acute intracranial hemorrhage, infarction, or mass/mass effect. Knee x ray 06/23/16 Impression:Osteopenia and degenerative changes. Rib X ray 06/23/16 Impression: Old healed left eighth - tenth rib fractures. No obvious acute rib fracture identified. Hip/pelvis x ray 06/23/16 Impression: Comminuted displaced left intertrochanteric fracture of the proximal femur. Cannot exclude associated vascular or surrounding soft tissue injuries. Assessment/Plan 1. POD 3 s/p left intertrochanteric fx repair with ross placement. DVT prophy and pain management per orthopedics 2. Acute anemia - s/p 2U PRBC. Hb stable now. May be related to recent surg. Occult blood test. Cont to monitor. 3. Hypothyroidism- continue Synthroid 4. Rheumatoid arthritis- continue home meds 5. Osteoporosis- continue meds 6. Advanced Alzheimer's dementia 7. Hypertension- continue home meds 8. DVT prophylaxis- Coumadin per ortho. Will place under ALC. VS,Fishbone, I+O VS, Fishbone, I+O Laboratory Tests 06/28/16 06:43 Calcium Level 8.5 L, Red Blood Count 2.94 L, Mean Corpuscular Volume 93.7, Mean Corpuscular Hemoglobin 30.9, Mean Corpuscular Hemoglobin Concent 33.0, Red Cell Distribution Width 15.7 H Vital Signs Date Time Temp Pulse Resp B/P Pulse Ox O2 Delivery O2 Flow Rate FiO2 06/28/16 06:00 96.4 74 16 139/60 98 Room Air 06/25/16 17:53 1.0 I&O- Last 24 Hours up to 6 AM 06/28/16 05:59 Intake Total 600 ml Balance 600 ml MARZENA KAYE MD Jun 28, 2016 16:03
[2016-06-28] MEDS ORDERED: WARFARIN SOD 5 MG TAB PO ONE (17:00)
[2016-06-28] MEDS: ESCITALOPRAM OXALATE 10 MG TAB (LEXAPRO) PO SCH (20:46)
[2016-06-28] MEDS: CYANOCOBALAMIN 500 MCG TAB PO SCH (20:46)
[2016-06-28] MEDS: LEVOTHYROXINE 0.112 MG TAB (112 MCG) PO SCH (20:46)
[2016-06-28] MEDS: ASPIRIN 81 MG ENTERIC TAB PO SCH (20:46)
[2016-06-28] MEDS: FOLIC ACID 1 MG TAB PO SCH (20:47)
[2016-06-28] MEDS: LISINOPRIL 10 MG TAB PO SCH (20:47)
[2016-06-29 06:00] VITALS: BP 185/80
[2016-06-29 07:02] LABS: INR 1.62
[2016-06-29] MEDS: PANTOPRAZOLE 40MG TAB (PROTONIX) PO SCH (09:15)
[2016-06-29] MEDS: MIRALAX *UNIT DOSE* 17GM PACKET PO SCH (09:15)
[2016-06-29] MEDS: ACETAMINOPHEN TAB 650MG DOSE (2X325MG) PO PRN ×2 (09:15→17:07)
[2016-06-29] MEDS: CEPHALEXIN 500 MG CAP PO SCH ×2 (09:15→20:13)
[2016-06-29] MEDS: SENOKOT S TAB PO SCH ×2 (09:15→20:13)
[2016-06-29 14:00] VITALS: BP 122/62
[2016-06-29] MEDS ORDERED: WARFARIN SOD 3 MG TAB PO ONE (17:00)
[2016-06-29] MEDS ORDERED: INFLUENZA VIRUS VACCINE HIGH DOSE 0.5 ML SYRINGE (90662) IM ONE (20:00)
[2016-06-29] MEDS: ASPIRIN 81 MG ENTERIC TAB PO SCH (20:13)
[2016-06-29] MEDS: CYANOCOBALAMIN 500 MCG TAB PO SCH (20:13)
[2016-06-29] MEDS: LEVOTHYROXINE 0.112 MG TAB (112 MCG) PO SCH (20:13)
[2016-06-29] MEDS: FOLIC ACID 1 MG TAB PO SCH (20:13)
[2016-06-29] MEDS: ESCITALOPRAM OXALATE 10 MG TAB (LEXAPRO) PO SCH (20:14)
[2016-06-29] MEDS: LISINOPRIL 10 MG TAB PO SCH (20:14)
[2016-06-30 07:28] LABS: MEAN CORPUSCULAR HEMOGLOBIN 31.7 pg (27.0-33.0); RED CELL DISTRIBUTION WIDTH 14.8 % (11.5-14.5); WHITE BLOOD COUNT 8.1 K/mm3 (4.0-10.0)
[2016-06-30 07:33] LABS: INR 2.11
[2016-06-30] MEDS: PANTOPRAZOLE 40MG TAB (PROTONIX) PO SCH (09:36)
[2016-06-30] MEDS: CEPHALEXIN 500 MG CAP PO SCH ×2 (09:36→21:53)
[2016-06-30] MEDS: SENOKOT S TAB PO SCH ×2 (09:36→21:53)
[2016-06-30] MEDS: MIRALAX *UNIT DOSE* 17GM PACKET PO SCH (09:36)
[2016-06-30] MEDS: ACETAMINOPHEN TAB 650MG DOSE (2X325MG) PO PRN (17:24)
[2016-06-30] MEDS: LEVOTHYROXINE 0.112 MG TAB (112 MCG) PO SCH (21:52)
[2016-06-30] MEDS: ASPIRIN 81 MG ENTERIC TAB PO SCH (21:53)
[2016-06-30] MEDS: FOLIC ACID 1 MG TAB PO SCH (21:53)
[2016-06-30] MEDS: ESCITALOPRAM OXALATE 10 MG TAB (LEXAPRO) PO SCH (21:53)
[2016-06-30] MEDS: CYANOCOBALAMIN 500 MCG TAB PO SCH (21:53)
[2016-06-30] MEDS: LISINOPRIL 10 MG TAB PO SCH (21:56)
[2016-06-30 22:00] VITALS: BP 141/67
[2016-07-01 06:00] VITALS: BP 150/68
[2016-07-01] MEDS: SENOKOT S TAB PO SCH ×2 (09:00→20:21)
[2016-07-01] MEDS: MIRALAX *UNIT DOSE* 17GM PACKET PO SCH (09:00)
[2016-07-01] MEDS: PANTOPRAZOLE 40MG TAB (PROTONIX) PO SCH (09:00)
[2016-07-01] MEDS: ACETAMINOPHEN TAB 650MG DOSE (2X325MG) PO PRN (10:17)
[2016-07-01 14:00] VITALS: BP 132/63
[2016-07-01] MEDS: RIVAROXABAN 10 MG TAB (XARELTO) PO SCH (17:50)
[2016-07-01] MEDS: ASPIRIN 81 MG ENTERIC TAB PO SCH (20:20)
[2016-07-01] MEDS: LEVOTHYROXINE 0.112 MG TAB (112 MCG) PO SCH (20:20)
[2016-07-01] MEDS: CYANOCOBALAMIN 500 MCG TAB PO SCH (20:21)
[2016-07-01] MEDS: FOLIC ACID 1 MG TAB PO SCH (20:21)
[2016-07-01] MEDS: ESCITALOPRAM OXALATE 10 MG TAB (LEXAPRO) PO SCH (20:21)
[2016-07-01] MEDS: LISINOPRIL 10 MG TAB PO SCH (20:22)
[2016-07-01 22:00] VITALS: BP 145/63
[2016-07-02 06:00] VITALS: BP 139/65
[2016-07-02] MEDS: PANTOPRAZOLE 40MG TAB (PROTONIX) PO SCH (10:21)
[2016-07-02] MEDS: SENOKOT S TAB PO SCH ×2 (10:21→20:11)
[2016-07-02] MEDS: MIRALAX *UNIT DOSE* 17GM PACKET PO SCH (10:21)
[2016-07-02 14:00] VITALS: BP 145/65
[2016-07-02] MEDS: RIVAROXABAN 10 MG TAB (XARELTO) PO SCH (18:03)
[2016-07-02] MEDS: ACETAMINOPHEN TAB 650MG DOSE (2X325MG) PO PRN (18:04)
[2016-07-02] MEDS: FOLIC ACID 1 MG TAB PO SCH (20:10)
[2016-07-02] MEDS: ASPIRIN 81 MG ENTERIC TAB PO SCH (20:11)
[2016-07-02] MEDS: CYANOCOBALAMIN 500 MCG TAB PO SCH (20:11)
[2016-07-02] MEDS: LEVOTHYROXINE 0.112 MG TAB (112 MCG) PO SCH (20:11)
[2016-07-02] MEDS: ESCITALOPRAM OXALATE 10 MG TAB (LEXAPRO) PO SCH (20:11)
[2016-07-02] MEDS: LISINOPRIL 10 MG TAB PO SCH (20:14)
[2016-07-02 20:15] VITALS: BP 130/72
[2016-07-02 22:00] VITALS: BP 122/58
[2016-07-03 06:00] VITALS: BP 149/67
[2016-07-03] MEDS ORDERED: HUMIRA 40 MG SC SCH (09:00)
[2016-07-03] MEDS: MIRALAX *UNIT DOSE* 17GM PACKET PO SCH (09:23)
[2016-07-03] MEDS: PANTOPRAZOLE 40MG TAB (PROTONIX) PO SCH (09:23)
[2016-07-03] MEDS: SENOKOT S TAB PO SCH ×2 (10:06→22:11)
[2016-07-03] MEDS: ACETAMINOPHEN TAB 650MG DOSE (2X325MG) PO PRN ×2 (15:42→22:12)
[2016-07-03] MEDS: VITAMIN D 50,000 UNITS CAPSULE (ERGOCALCIFEROL 1.25MG) PO SCH (18:12)
[2016-07-03] MEDS: RIVAROXABAN 10 MG TAB (XARELTO) PO SCH (18:13)
[2016-07-03 22:00] VITALS: BP 105/53
[2016-07-03] MEDS: CYANOCOBALAMIN 500 MCG TAB PO SCH (22:11)
[2016-07-03] MEDS: ASPIRIN 81 MG ENTERIC TAB PO SCH (22:12)
[2016-07-03] MEDS: ESCITALOPRAM OXALATE 10 MG TAB (LEXAPRO) PO SCH (22:13)
[2016-07-03] MEDS: FOLIC ACID 1 MG TAB PO SCH (22:13)
[2016-07-03] MEDS: LEVOTHYROXINE 0.112 MG TAB (112 MCG) PO SCH (22:14)
[2016-07-03 22:15] VITALS: BP 145/69
[2016-07-03] MEDS: LISINOPRIL 10 MG TAB PO SCH (22:15)
[2016-07-04 06:00] VITALS: BP 128/58
[2016-07-04] MEDS: MIRALAX *UNIT DOSE* 17GM PACKET PO SCH (08:58)
[2016-07-04] MEDS: SENOKOT S TAB PO SCH (08:59)
[2016-07-04] MEDS: PANTOPRAZOLE 40MG TAB (PROTONIX) PO SCH (09:05)
[2016-07-04] MEDS ORDERED: XARE10TA PO (09:39)
[2016-07-04] MEDS: ACETAMINOPHEN TAB 650MG DOSE (2X325MG) PO PRN (10:10)
--- NOTE | 2016-07-04 15:57 | DSES ---
DATE OF ADMISSION: 06/23/2016 DATE OF DISCHARGE: 07/04/2016 PRIMARY CARE PROVIDER: Dr. Bassem Cano REFERRING PHYSICIAN: None. CONSULTING PHYSICIAN: Dr. Loc Dobson. CONDITION ON DISCHARGE: Stable. FINAL DIAGNOSIS: Left intratrochanteric fracture status post repair with ross placement. PROCEDURES: On 06/27/2016, the patient had a left hip open reduction internal fixation with a long gamma nail. HISTORY OF PRESENT ILLNESS: The patient is an 86-year-old female with a past medical history of hypothyroidism, rheumatoid arthritis, osteoarthritis, Alzheimer's disease that is severe, hypertension, baseline ambulatory with assistance with a walker. As per family, the patient fell out of a chair yesterday night and subsequently as per family has had pretty significant pain in the left lower extremity. The patient on baseline is alert and alerted times one, requiring 24/7 care, unable to access activity status. As per family, she has not had any coronary artery disease or any cerebrovascular accidents. Currently, the patient is nonverbal, seems to be in mild distress, frowning. Imaging in the emergency room (ER) revealed that the patient had a left intratrochanteric fracture and orthopedic surgery was consulted. HOSPITAL COURSE: 1. Left intratrochanteric fracture, status post repair with ross placement. Deep vein thrombosis (DVT) prophylaxis and pain management as per orthopedic surgery. 2. Acute anemia, status post two units of packed red blood cells (PRBCs). Hemoglobin has been stable. May be related to recent surgery. Occult blood test. 3. Hypothyroidism. Continue Synthroid. 4. Rheumatoid arthritis. Continue with home medications. 5. Osteoporosis. Continue with home medications. 6. Advanced Alzheimer's dementia. 7. Hypertension. Continue with home medications. 8. DVT prophylaxis. Coumadin as per orthopedic surgery. The patient was placed on alternative level of care (ALC) status awaiting for longterm placement. DISCHARGE MEDICATIONS: The patient will be discharged home with: - acetaminophen 650 mg by mouth twice a day - aspirin 81 mg by mouth every evening - vitamin B12 2000 mcg by mouth every evening - escitalopram 20 mg by mouth every evening - folic acid 1 mg by mouth every evening - Humira 40 mg subcutaneous every two weeks - levothyroxine 112 mcg by mouth every evening - lisinopril 10 mg by mouth every evening - methotrexate 10 mg by mouth every week - vitamin D 50,000 units by mouth every week New medications include: Xarelto 10 mg by mouth daily. DISCHARGE INSTRUCTIONS: The patient was advised to followup with primary care provider and orthopedic surgery within the seven days. She has been advised to call and schedule an appointment. The patient has been advised to remain compliant with treatment plan and medications and return to the emergency room if she experiences any problems. TIME SPENT ON DISCHARGE: 35 minutes.
== END 2016-07-04 11:30 | DRG 481 ==
LOC: M ED 16:28 → M MS5PR 19:59 → M ED INP 20:00 → M MS5PR 21:30
PROVIDERS: ADMIT Hospitalist; ATTEND Hospitalist
PROC: 0QS704Z Reposition Left Upper Femur with Internal Fixation Device, Open Approach (ICD-10-PCS; principal; 2016-06-24 10:00)
PROC: 30233N1 Transfusion of Nonautologous Red Blood Cells into Peripheral Vein, Percutaneous Approach (ICD-10-PCS; 2016-06-25)
DX: S72.142A Displaced intertrochanteric fracture of left femur, initial encounter for closed fracture (principal); D62 Acute posthemorrhagic anemia; N39.0 Urinary tract infection, site not specified; B96.20 Unspecified Escherichia coli [E. coli] as the cause of diseases classified elsewhere; E03.9 Hypothyroidism, unspecified; I10 Essential (primary) hypertension; M81.0 Age-related osteoporosis without current pathological fracture; M06.9 Rheumatoid arthritis, unspecified; G30.9 Alzheimer's disease, unspecified; F02.80 Dementia in other diseases classified elsewhere, unspecified severity, without behavioral disturbance, psychotic disturbance, mood disturbance, and anxiety; Z79.82 Long term (current) use of aspirin; Z79.899 Other long term (current) drug therapy; W07.XXXA Fall from chair, initial encounter; Y92.019 Unspecified place in single-family (private) house as the place of occurrence of the external cause; Y93.89 Activity, other specified; Z90.722 Acquired absence of ovaries, bilateral; Y99.9 Unspecified external cause status

== ENCOUNTER → 2016-07-20 | Outpatient (REF) ==
[~2016-07-20] MED LIST: ASPI1TAB PO; DRIS50002 PO; ESCI20TA PO; FOLI1TAB2 PO; HUMI40KI SC; LEVO112T25 PO; LISI10TA4 PO; METH2.5TA PO; TRAM50TA2 PO; TYLE650T35 PO; VITA10002 PO; XARE10TA PO
[2016-07-20 08:30] LABS: BASO # 0.1 K/mm3 (0.0-0.2); BASO % 0.8 % (0.0-1.0); EOS # 0.1 K/mm3 (0.0-0.50); EOS % 1.3 % (0.0-3.0); LARGE UNSTAINED CELL # 0.3 K/mm3 (0.0-0.4); LARGE UNSTAINED CELL % 3.3 % (0.0-4.0); LYMPH # 2.5 K/mm3 (1.5-4.5); LYMPH % 27.3 % (24.0-44.0); MEAN CORPUSCULAR HEMOGLOBIN 30.9 pg (27.0-33.0); MEAN CORPUSCULAR HGB CONC 30.8 g/dl (32.0-36.5); MEAN CORPUSCULAR VOLUME 100.1 fl (80.0-96.0); MONO # 0.5 K/mm3 (0.0-0.8); MONO % 6.3 % (0.0-5.0); NEUTROPHILS # 4.9 K/mm3 (1.8-7.7); PLATELET COUNT, AUTOMATED 332 k/mm3 (150-450); RED CELL DISTRIBUTION WIDTH 15.5 % (11.5-14.5)
== END ==
LOC: SKLAB7 07:00
PROVIDERS: ATTEND Internal Medicine
DX: E03.9 Hypothyroidism, unspecified (principal); D64.9 Anemia, unspecified

== ENCOUNTER → 2016-08-09 | Outpatient (REF) | payer MEDICARE, OTHER ==
--- NOTE | 2016-08-09 14:14 | REP ---
Duplex extremity venous ultrasound: Left lower extremity. History: Left lower extremity pain and swelling. Question DVT. Findings: The deep veins are anechoic and fully compressible from the groin to the popliteal fossa in the left lower extremity. Color flow imaging is homogeneous. Spectral Doppler interrogation demonstrates intact respiratory variation in flow and normal manual augmentation of flow. There is no evidence of deep vein thrombosis. Impression: Negative left lower extremity duplex venous ultrasound. No evidence of deep vein thrombosis. Signed by Thomas Lawson MD 08/09/2016 02:05 P
== END ==
LOC: M RAD 12:00 → EDSTATUS 13:30
PROVIDERS: ATTEND Orthopaedic Surgery
DX: M79.89 Other specified soft tissue disorders (principal)

== ENCOUNTER → 2016-08-17 | Outpatient (REF) ==
[2016-08-17 10:08] LABS: BASO % 0.4 % (0.0-1.0); EOS % 0.5 % (0.0-3.0); LARGE UNSTAINED CELL # 0.2 K/mm3 (0.0-0.4); LARGE UNSTAINED CELL % 2.7 % (0.0-4.0); LYMPH # 1.7 K/mm3 (1.5-4.5); LYMPH % 19.1 % (24.0-44.0); MEAN CORPUSCULAR HEMOGLOBIN 31.6 pg (27.0-33.0); MEAN CORPUSCULAR HGB CONC 31.9 g/dl (32.0-36.5); MEAN CORPUSCULAR VOLUME 99.1 fl (80.0-96.0); MONO # 0.8 K/mm3 (0.0-0.8); MONO % 10.2 % (0.0-5.0); NEUTROPHILS # 5.3 K/mm3 (1.8-7.7); NEUTROPHILS % 67.1 % (36.0-66.0); PLATELET COUNT, AUTOMATED 309 k/mm3 (150-450); RED CELL DISTRIBUTION WIDTH 13.8 % (11.5-14.5); WHITE BLOOD COUNT 7.9 K/mm3 (4.0-10.0)
[2016-08-17 10:31] LABS: ANION GAP 9 MEQ/L (8-16); BLOOD UREA NITROGEN 19 MG/DL (7-18); CALCIUM LEVEL 9.4 MG/DL (8.8-10.2); CARBON DIOXIDE LEVEL 28 MEQ/L (21-32); CHLORIDE LEVEL 101 MEQ/L (98-107); CREATININE FOR GFR 0.67 MG/DL (0.55-1.02); GLOMERULAR FILTRATION RATE > 60.0 (>32); GLUCOSE, FASTING 148 MG/DL (83-110); POTASSIUM SERUM 4.8 MEQ/L (3.5-5.1); SODIUM LEVEL 138 MEQ/L (136-145)
== END ==
LOC: SKLAB7 07:00
PROVIDERS: ATTEND Internal Medicine
DX: I10 Essential (primary) hypertension (principal); D64.9 Anemia, unspecified; E03.9 Hypothyroidism, unspecified

== ENCOUNTER → 2016-09-14 | Outpatient (REF) | payer MEDICARE, OTHER ==
[2016-09-14 08:54] LABS: MEAN CORPUSCULAR HGB CONC 32.3 g/dl (32.0-36.5); MEAN CORPUSCULAR VOLUME 96.1 fl (80.0-96.0); RED CELL DISTRIBUTION WIDTH 12.9 % (11.5-14.5); WHITE BLOOD COUNT 8.9 K/mm3 (4.0-10.0)
== END ==
LOC: SKLAB7 07:00
PROVIDERS: ATTEND Internal Medicine
DX: D64.9 Anemia, unspecified (principal)

== ENCOUNTER → 2016-10-19 | Outpatient (REF) | payer MEDICARE, OTHER ==
[2016-10-19 08:26] LABS: MEAN CORPUSCULAR HGB CONC 32.4 g/dl (32.0-36.5); MEAN CORPUSCULAR VOLUME 95.7 fl (80.0-96.0); RED CELL DISTRIBUTION WIDTH 12.9 % (11.5-14.5); WHITE BLOOD COUNT 7.6 K/mm3 (4.0-10.0)
== END ==
LOC: SKLAB7 07:00
PROVIDERS: ATTEND Internal Medicine
DX: I10 Essential (primary) hypertension (principal); D64.9 Anemia, unspecified

== ENCOUNTER → 2016-10-23 | Outpatient (REF) | payer MEDICARE, OTHER ==
[2016-10-23 09:11] LABS: ALBUMIN 3.2 GM/DL (3.2-5.2); ALBUMIN/GLOBULIN RATIO 0.64 (1.00-1.93); ALKALINE PHOSPHATASE 104 U/L (45-117); ALT/SGPT 20 U/L (12-78); ANION GAP 7 MEQ/L (8-16); AST/SGOT 20 U/L (15-37); BILIRUBIN,DIRECT < 0.1 MG/DL (0.0-0.2); BILIRUBIN,TOTAL 0.3 MG/DL (0.2-1.0); BLOOD UREA NITROGEN 12 MG/DL (7-18); CALCIUM LEVEL 9.1 MG/DL (8.8-10.2); CARBON DIOXIDE LEVEL 29 MEQ/L (21-32); CHLORIDE LEVEL 102 MEQ/L (98-107); CREATININE FOR GFR 0.74 MG/DL (0.55-1.02); GLOMERULAR FILTRATION RATE > 60.0 (>32); GLUCOSE, FASTING 153 MG/DL (83-110); POTASSIUM SERUM 4.5 MEQ/L (3.5-5.1); SODIUM LEVEL 138 MEQ/L (136-145); TOTAL PROTEIN 8.2 GM/DL (6.4-8.2)
== END ==
LOC: SKLAB7 12:59
PROVIDERS: ATTEND Family Medicine
DX: M19.90 Unspecified osteoarthritis, unspecified site (principal)

== ENCOUNTER → 2016-11-16 | Outpatient (REF) | payer MEDICARE, OTHER ==
[2016-11-16 09:04] LABS: BASO % 0.4 % (0.0-1.0); EOS # 0.1 K/mm3 (0.0-0.50); EOS % 1.1 % (0.0-3.0); LARGE UNSTAINED CELL # 0.2 K/mm3 (0.0-0.4); LARGE UNSTAINED CELL % 2.2 % (0.0-4.0); LYMPH # 1.8 K/mm3 (1.5-4.5); LYMPH % 22.9 % (24.0-44.0); MEAN CORPUSCULAR HEMOGLOBIN 31.2 pg (27.0-33.0); MEAN CORPUSCULAR HGB CONC 32.6 g/dl (32.0-36.5); MEAN CORPUSCULAR VOLUME 95.5 fl (80.0-96.0); MONO # 0.5 K/mm3 (0.0-0.8); MONO % 6.7 % (0.0-5.0); NEUTROPHILS # 4.9 K/mm3 (1.8-7.7); NEUTROPHILS % 66.7 % (36.0-66.0); PLATELET COUNT, AUTOMATED 354 k/mm3 (150-450); RED CELL DISTRIBUTION WIDTH 13.1 % (11.5-14.5); WHITE BLOOD COUNT 7.3 K/mm3 (4.0-10.0)
[2016-11-16 09:41] LABS: ANION GAP 8 MEQ/L (8-16); BLOOD UREA NITROGEN 19 MG/DL (7-18); CALCIUM LEVEL 9.5 MG/DL (8.8-10.2); CARBON DIOXIDE LEVEL 27 MEQ/L (21-32); CHLORIDE LEVEL 106 MEQ/L (98-107); CREATININE FOR GFR 0.62 MG/DL (0.55-1.02); GLOMERULAR FILTRATION RATE > 60.0 (>32); GLUCOSE, FASTING 81 MG/DL (83-110); POTASSIUM SERUM 4.8 MEQ/L (3.5-5.1); SODIUM LEVEL 141 MEQ/L (136-145)
== END ==
LOC: SKLAB7 10:36
PROVIDERS: ATTEND Internal Medicine
DX: D64.9 Anemia, unspecified (principal); I10 Essential (primary) hypertension

== ENCOUNTER → 2016-12-14 | Outpatient (REF) | payer MEDICARE, OTHER ==
[2016-12-14 09:19] LABS: BASO # 0.1 K/mm3 (0.0-0.2); BASO % 0.7 % (0.0-1.0); EOS # 0.1 K/mm3 (0.0-0.50); EOS % 1.2 % (0.0-3.0); LARGE UNSTAINED CELL # 0.2 K/mm3 (0.0-0.4); LARGE UNSTAINED CELL % 2.8 % (0.0-4.0); LYMPH # 2.1 K/mm3 (1.5-4.5); LYMPH % 24.5 % (24.0-44.0); MEAN CORPUSCULAR HEMOGLOBIN 31.4 pg (27.0-33.0); MEAN CORPUSCULAR HGB CONC 32.5 g/dl (32.0-36.5); MEAN CORPUSCULAR VOLUME 96.6 fl (80.0-96.0); MONO # 0.5 K/mm3 (0.0-0.8); MONO % 5.5 % (0.0-5.0); NEUTROPHILS # 5.7 K/mm3 (1.8-7.7); NEUTROPHILS % 65.2 % (36.0-66.0); PLATELET COUNT, AUTOMATED 512 k/mm3 (150-450); RED CELL DISTRIBUTION WIDTH 12.9 % (11.5-14.5); WHITE BLOOD COUNT 8.7 K/mm3 (4.0-10.0)
== END ==
LOC: SKLAB7 08:00
PROVIDERS: ATTEND Internal Medicine
DX: D64.9 Anemia, unspecified (principal)

== ENCOUNTER → 2017-01-18 | Outpatient (REF) | payer MEDICARE, OTHER ==
[~2017-01-18] MED LIST changes: -FOLI1TAB2 PO; +FOLI1TAB4 PO
[2017-01-18 08:35] LABS: BASO % 0.4 % (0.0-1.0); EOS # 0.1 K/mm3 (0.0-0.50); LARGE UNSTAINED CELL # 0.2 K/mm3 (0.0-0.4); LARGE UNSTAINED CELL % 2.3 % (0.0-4.0); LYMPH # 1.8 K/mm3 (1.5-4.5); LYMPH % 18.6 % (24.0-44.0); MEAN CORPUSCULAR HEMOGLOBIN 30.3 pg (27.0-33.0); MEAN CORPUSCULAR HGB CONC 32.3 g/dl (32.0-36.5); MEAN CORPUSCULAR VOLUME 93.8 fl (80.0-96.0); MONO # 0.7 K/mm3 (0.0-0.8); NEUTROPHILS # 6.1 K/mm3 (1.8-7.7); NEUTROPHILS % 69.7 % (36.0-66.0); PLATELET COUNT, AUTOMATED 527 k/mm3 (150-450); RED CELL DISTRIBUTION WIDTH 12.1 % (11.5-14.5); WHITE BLOOD COUNT 8.8 K/mm3 (4.0-10.0)
== END ==
LOC: SKLAB7 07:00
PROVIDERS: ATTEND Internal Medicine
DX: D64.9 Anemia, unspecified (principal); E07.9 Disorder of thyroid, unspecified

== ENCOUNTER → 2017-01-31 | Outpatient (REF) | payer MEDICARE, OTHER | LOC: SKLAB7 21:16 | PROVIDERS: ATTEND Internal Medicine | DX: D64.9 Anemia, unspecified (principal); Z79.899 Other long term (current) drug therapy; I10 Essential (primary) hypertension ==

== ENCOUNTER → 2017-02-08 | Outpatient (REF) | payer MEDICARE, OTHER ==
[2017-02-08 09:24] LABS: MEAN CORPUSCULAR HEMOGLOBIN 29.3 pg (27.0-33.0); MEAN CORPUSCULAR HGB CONC 31.8 g/dl (32.0-36.5); MEAN CORPUSCULAR VOLUME 92.1 fl (80.0-96.0); RED CELL DISTRIBUTION WIDTH 12.1 % (11.5-14.5); WHITE BLOOD COUNT 8.2 K/mm3 (4.0-10.0)
[2017-02-08 09:39] LABS: ALBUMIN 2.5 GM/DL (3.2-5.2); ALBUMIN/GLOBULIN RATIO 0.47 (1.00-1.93); ALKALINE PHOSPHATASE 91 U/L (45-117); ALT/SGPT 24 U/L (12-78); ANION GAP 11 MEQ/L (8-16); AST/SGOT 19 U/L (15-37); BILIRUBIN,TOTAL 0.2 MG/DL (0.2-1.0); BLOOD UREA NITROGEN 22 MG/DL (7-18); CALCIUM LEVEL 9.2 MG/DL (8.8-10.2); CARBON DIOXIDE LEVEL 24 MEQ/L (21-32); CHLORIDE LEVEL 108 MEQ/L (98-107); CREATININE FOR GFR 0.59 MG/DL (0.55-1.02); GLOMERULAR FILTRATION RATE > 60.0 (>32); GLUCOSE, FASTING 77 MG/DL (83-110); POTASSIUM SERUM 4.7 MEQ/L (3.5-5.1); SODIUM LEVEL 143 MEQ/L (136-145); TOTAL PROTEIN 7.8 GM/DL (6.4-8.2)
== END ==
LOC: SKLAB7 07:00
PROVIDERS: ATTEND Family Medicine
DX: D64.9 Anemia, unspecified (principal)

== ENCOUNTER → 2017-03-22 | Outpatient (REF) | payer MEDICARE, OTHER ==
[2017-03-22 09:20] LABS: BASO % 0.3 % (0.0-1.0); EOS % 0.5 % (0.0-3.0); LARGE UNSTAINED CELL # 0.3 K/mm3 (0.0-0.4); LARGE UNSTAINED CELL % 2.9 % (0.0-4.0); LYMPH # 1.8 K/mm3 (1.5-4.5); LYMPH % 17.9 % (24.0-44.0); MEAN CORPUSCULAR HEMOGLOBIN 28.4 pg (27.0-33.0); MEAN CORPUSCULAR VOLUME 88.9 fl (80.0-96.0); MONO # 0.6 K/mm3 (0.0-0.8); MONO % 5.6 % (0.0-5.0); NEUTROPHILS # 7.2 K/mm3 (1.8-7.7); NEUTROPHILS % 72.8 % (36.0-66.0); PLATELET COUNT, AUTOMATED 630 k/mm3 (150-450); RED CELL DISTRIBUTION WIDTH 14.3 % (11.5-14.5); WHITE BLOOD COUNT 9.9 K/mm3 (4.0-10.0)
[2017-03-22 09:27] LABS: ALKALINE PHOSPHATASE 85 U/L (45-117); ALT/SGPT 19 U/L (12-78); ANION GAP 10 MEQ/L (8-16); AST/SGOT 15 U/L (15-37); BLOOD UREA NITROGEN 18 MG/DL (7-18); CALCIUM LEVEL 9.4 MG/DL (8.8-10.2); CARBON DIOXIDE LEVEL 25 MEQ/L (21-32); CHLORIDE LEVEL 105 MEQ/L (98-107); CREATININE FOR GFR 0.56 MG/DL (0.55-1.02); GLOMERULAR FILTRATION RATE > 60.0 (>32); GLUCOSE, FASTING 82 MG/DL (83-110); POTASSIUM SERUM 5.1 MEQ/L (3.5-5.1); SODIUM LEVEL 140 MEQ/L (136-145)
[2017-03-22 09:28] LABS: ALBUMIN 2.7 GM/DL (3.2-5.2); ALBUMIN/GLOBULIN RATIO 0.59 (1.00-1.93); BILIRUBIN,TOTAL 0.2 MG/DL (0.2-1.0); TOTAL PROTEIN 7.3 GM/DL (6.4-8.2)
== END ==
LOC: SKLAB7 08:00
PROVIDERS: ATTEND Internal Medicine
DX: I10 Essential (primary) hypertension (principal); D64.9 Anemia, unspecified

== ENCOUNTER → 2017-04-19 | Outpatient (REF) | payer MEDICARE, OTHER ==
[2017-04-19 09:31] LABS: BASO % 0.3 % (0.0-1.0); EOS % 0.4 % (0.0-3.0); IMMATURE GRANULOCYTE % 0.3 % (0-0); LYMPH # 1.8 10^3/uL (1.5-4.5); LYMPH % 18.7 % (24.0-44.0); MEAN CORPUSCULAR HEMOGLOBIN 27.1 pg (27.0-33.0); MEAN CORPUSCULAR HGB CONC 30.9 g/dl (32.0-36.5); MEAN CORPUSCULAR VOLUME 87.8 fl (80.0-96.0); MONO # 0.8 10^3/uL (0.0-0.8); MONO % 8.5 % (0.0-5.0); NEUTROPHILS % 71.8 % (36.0-66.0); PLATELET COUNT, AUTOMATED 523 10^3/uL (150-450); RED CELL DISTRIBUTION WIDTH 17.3 % (11.5-14.5); WHITE BLOOD COUNT 9.7 10^3/uL (4.0-10.0)
[2017-04-19 10:18] LABS: ALBUMIN 2.9 GM/DL (3.2-5.2); ALBUMIN/GLOBULIN RATIO 0.56 (1.00-1.93); ALKALINE PHOSPHATASE 91 U/L (45-117); ALT/SGPT 25 U/L (12-78); ANION GAP 8 MEQ/L (8-16); AST/SGOT 17 U/L (15-37); BILIRUBIN,TOTAL 0.4 MG/DL (0.2-1.0); BLOOD UREA NITROGEN 26 MG/DL (7-18); CALCIUM LEVEL 9.4 MG/DL (8.8-10.2); CARBON DIOXIDE LEVEL 27 MEQ/L (21-32); CHLORIDE LEVEL 103 MEQ/L (98-107); CREATININE FOR GFR 0.68 MG/DL (0.55-1.02); GLOMERULAR FILTRATION RATE > 60.0 (>32); GLUCOSE, FASTING 135 MG/DL (83-110); POTASSIUM SERUM 4.3 MEQ/L (3.5-5.1); SODIUM LEVEL 138 MEQ/L (136-145); TOTAL PROTEIN 8.1 GM/DL (6.4-8.2)
== END ==
LOC: SKLAB7 07:00
PROVIDERS: ATTEND Internal Medicine
DX: D64.9 Anemia, unspecified (principal); I10 Essential (primary) hypertension

== ENCOUNTER → 2017-05-17 | Outpatient (REF) | payer MEDICARE, OTHER ==
[2017-05-17 08:56] LABS: BASO % 0.3 % (0.0-1.0); EOS # 0.1 10^3/uL (0.0-0.50); EOS % 1.3 % (0.0-3.0); IMMATURE GRANULOCYTE % 0.5 % (0-0); LYMPH # 1.8 10^3/uL (1.5-4.5); LYMPH % 20.8 % (24.0-44.0); MEAN CORPUSCULAR HEMOGLOBIN 27.9 pg (27.0-33.0); MEAN CORPUSCULAR HGB CONC 31.4 g/dl (32.0-36.5); MEAN CORPUSCULAR VOLUME 88.9 fl (80.0-96.0); MONO # 0.8 10^3/uL (0.0-0.8); MONO % 9.6 % (0.0-5.0); NEUTROPHILS # 5.9 10^3/uL (1.8-7.7); NEUTROPHILS % 67.5 % (36.0-66.0); PLATELET COUNT, AUTOMATED 509 10^3/uL (150-450); RED CELL DISTRIBUTION WIDTH 17.2 % (11.5-14.5); WHITE BLOOD COUNT 8.7 10^3/uL (4.0-10.0)
[2017-05-17 09:49] LABS: ALBUMIN/GLOBULIN RATIO 0.67 (1.00-1.93); ALKALINE PHOSPHATASE 95 U/L (45-117); ALT/SGPT 43 U/L (12-78); ANION GAP 8 MEQ/L (8-16); AST/SGOT 25 U/L (7-37); BILIRUBIN,TOTAL 0.3 MG/DL (0.2-1.0); BLOOD UREA NITROGEN 26 MG/DL (7-18); CALCIUM LEVEL 9.6 MG/DL (8.8-10.2); CARBON DIOXIDE LEVEL 27 MEQ/L (21-32); CHLORIDE LEVEL 103 MEQ/L (98-107); GLOMERULAR FILTRATION RATE > 60.0 (>32); GLUCOSE, FASTING 92 MG/DL (83-110); SODIUM LEVEL 138 MEQ/L (136-145); TOTAL PROTEIN 7.5 GM/DL (6.4-8.2)
== END ==
LOC: SKLAB7 07:00
PROVIDERS: ATTEND Internal Medicine
DX: D64.9 Anemia, unspecified (principal); I10 Essential (primary) hypertension

== ENCOUNTER → 2017-07-13 | Outpatient (REF) | payer MEDICARE, OTHER ==
[2017-07-13 14:04] LABS: BASO % 0.2 % (0.0-1.0); EOS % 0.2 % (0.0-3.0); HEMATOCRIT 31.5 % (36.0-47.0); HEMOGLOBIN 10.2 g/dl (12.0-16.0); IMMATURE GRANULOCYTE # 0.1 10^3/uL (0-0); IMMATURE GRANULOCYTE % 0.5 % (0-0); LYMPH # 1.7 10^3/uL (1.5-4.5); LYMPH % 12.7 % (24.0-44.0); MEAN CORPUSCULAR HEMOGLOBIN 29.7 pg (27.0-33.0); MEAN CORPUSCULAR HGB CONC 32.4 g/dl (32.0-36.5); MEAN CORPUSCULAR VOLUME 91.6 fl (80.0-96.0); MONO # 0.6 10^3/uL (0.0-0.8); MONO % 4.7 % (0.0-5.0); NEUTROPHILS # 10.6 10^3/uL (1.8-7.7); NEUTROPHILS % 81.7 % (36.0-66.0); PLATELET COUNT, AUTOMATED 521 10^3/uL (150-450); RED BLOOD COUNT 3.44 10^6/uL (4.00-5.40); RED CELL DISTRIBUTION WIDTH 17.1 % (11.5-14.5)
[2017-07-13 14:08] LABS: APPEARANCE, URINE HAZY (CLEAR); BACTERIA, URINE AUTO 1+ (NEGATIVE); BILIRUBIN, URINE AUTO 1+ (NEGATIVE); BLOOD, URINE BLOOD NEGATIVE (NEGATIVE); COLOR, URINE AMBER (YELLOW); GLUCOSE, URINE (UA) AUTO NEGATIVE (NEGATIVE); KETONE, URINE AUTO NEGATIVE (NEGATIVE); LEUKOCYTE ESTERASE, URINE AUTO 2+ (NEGATIVE); MUCUS, URINE SMALL (NEGATIVE); NITRITE, URINE AUTO NEGATIVE (NEGATIVE); PROTEIN, URINE AUTO NEGATIVE (NEGATIVE); RBC, URINE AUTO 1 /HPF (0-3); SPECIFIC GRAVITY URINE AUTO 1.015 (1.002-1.035); SQUAMOUS EPITHELIAL CELL UR AU 3 /HPF (0-6); WBC, URINE AUTO 21 /HPF (0-3)
[2017-07-13 14:33] LABS: ALBUMIN 2.7 GM/DL (3.2-5.2); ALKALINE PHOSPHATASE 626 U/L (45-117); ALT/SGPT 256 U/L (12-78); ANION GAP 8 MEQ/L (8-16); AST/SGOT 157 U/L (7-37); BLOOD UREA NITROGEN 27 MG/DL (7-18); CALCIUM LEVEL 9.5 MG/DL (8.8-10.2); CARBON DIOXIDE LEVEL 27 MEQ/L (21-32); CHLORIDE LEVEL 104 MEQ/L (98-107); CREATININE FOR GFR 0.55 MG/DL (0.55-1.02); GLOMERULAR FILTRATION RATE > 60.0 (>32); GLUCOSE, FASTING 97 MG/DL (83-110); POTASSIUM SERUM 4.8 MEQ/L (3.5-5.1); SODIUM LEVEL 139 MEQ/L (136-145); TOTAL PROTEIN 7.2 GM/DL (6.4-8.2)
[2017-07-13 17:21] LABS: HEPATITIS B SURFACE ANTIGEN NEGATIVE (NEGATIVE)
[2017-07-13 17:47] LABS: HEPATITIS C VIRUS ABY INDEX 0.1 INDEX (<0.8)
[2017-07-13 17:48] LABS: HEPATITIS B CORE ANTIBODY IGM NEGATIVE (NEGATIVE)
[2017-07-13 17:51] LABS: HEPATITIS A ANTIBODY IGM NEGATIVE (NEGATIVE)
== END ==
LOC: SKLAB7 13:01
DX: R17 Unspecified jaundice (principal)

== ENCOUNTER → 2017-07-13 | Outpatient (CLI) | payer MEDICARE, OTHER | LOC: M RAD 15:36 | DX: R10.9 Unspecified abdominal pain (principal); R17 Unspecified jaundice; R94.5 Abnormal results of liver function studies | CPT/HCPCS: 74176 ==

== ENCOUNTER → 2017-07-14 | Outpatient (REF) | payer MEDICARE, OTHER ==
[2017-07-14 08:06] LABS: ALBUMIN 2.7 GM/DL (3.2-5.2); ALBUMIN/GLOBULIN RATIO 0.64 (1.00-1.93); ALKALINE PHOSPHATASE 607 U/L (45-117); ALT/SGPT 213 U/L (12-78); AST/SGOT 107 U/L (7-37); BILIRUBIN,DIRECT 0.9 MG/DL (0.0-0.2); BILIRUBIN,TOTAL 1.2 MG/DL (0.2-1.0); TOTAL PROTEIN 6.9 GM/DL (6.4-8.2)
== END ==
LOC: SKLAB7 07:00
DX: R14.0 Abdominal distension (gaseous) (principal)
CPT/HCPCS: 80076

== ENCOUNTER → 2017-07-16 | Outpatient (REF) | payer MEDICARE, OTHER ==
[2017-07-16 10:43] LABS: ANION GAP 11 MEQ/L (8-16); BLOOD UREA NITROGEN 17 MG/DL (7-18); CALCIUM LEVEL 9.4 MG/DL (8.8-10.2); CARBON DIOXIDE LEVEL 26 MEQ/L (21-32); CHLORIDE LEVEL 103 MEQ/L (98-107); CREATININE FOR GFR 0.55 MG/DL (0.55-1.02); GLOMERULAR FILTRATION RATE > 60.0 (>32); GLUCOSE, FASTING 105 MG/DL (83-110); POTASSIUM SERUM 4.6 MEQ/L (3.5-5.1); SODIUM LEVEL 140 MEQ/L (136-145)
[2017-07-16 11:34] LABS: ALBUMIN 2.9 GM/DL (3.2-5.2); ALKALINE PHOSPHATASE 645 U/L (45-117); ALT/SGPT 192 U/L (12-78); AST/SGOT 86 U/L (7-37); BILIRUBIN,TOTAL 0.8 MG/DL (0.2-1.0); TOTAL PROTEIN 7.7 GM/DL (6.4-8.2)
== END ==
LOC: SKLAB7 07:00
DX: R53.83 Other fatigue (principal)
CPT/HCPCS: 80053

== ENCOUNTER → 2017-07-19 | Outpatient (REF) | payer MEDICARE, OTHER ==
[2017-07-19 10:36] LABS: ALBUMIN 2.9 GM/DL (3.2-5.2); ALBUMIN/GLOBULIN RATIO 0.62 (1.00-1.93); ALKALINE PHOSPHATASE 778 U/L (45-117); ALT/SGPT 361 U/L (12-78); ANION GAP 7 MEQ/L (8-16); AST/SGOT 282 U/L (7-37); BILIRUBIN,TOTAL 2.4 MG/DL (0.2-1.0); BLOOD UREA NITROGEN 25 MG/DL (7-18); CALCIUM LEVEL 9.1 MG/DL (8.8-10.2); CARBON DIOXIDE LEVEL 28 MEQ/L (21-32); CHLORIDE LEVEL 103 MEQ/L (98-107); GLOMERULAR FILTRATION RATE > 60.0 (>32); GLUCOSE, FASTING 81 MG/DL (83-110); POTASSIUM SERUM 4.9 MEQ/L (3.5-5.1); SODIUM LEVEL 138 MEQ/L (136-145); TOTAL PROTEIN 7.6 GM/DL (6.4-8.2)
== END ==
LOC: SKLAB7 07:00
DX: D64.9 Anemia, unspecified (principal); I10 Essential (primary) hypertension; E03.9 Hypothyroidism, unspecified
CPT/HCPCS: 84443

== ENCOUNTER → 2017-08-16 | Outpatient (REF) | payer MEDICARE, OTHER ==
[2017-08-16 09:36] LABS: BASO # 0.1 10^3/uL (0.0-0.2); BASO % 0.4 % (0.0-1.0); EOS # 0.1 10^3/uL (0.0-0.50); EOS % 0.8 % (0.0-3.0); IMMATURE GRANULOCYTE % 0.7 % (0-3.0); LYMPH # 1.9 10^3/uL (1.5-4.5); LYMPH % 16.9 % (24.0-44.0); MEAN CORPUSCULAR HEMOGLOBIN 30.5 pg (27.0-33.0); MEAN CORPUSCULAR HGB CONC 32.4 g/dl (32.0-36.5); MEAN CORPUSCULAR VOLUME 94.1 fl (80.0-96.0); MONO # 0.8 10^3/uL (0.0-0.8); MONO % 6.8 % (0.0-5.0); NEUTROPHILS # 8.5 10^3/uL (1.8-7.7); NEUTROPHILS % 74.4 % (36.0-66.0); PLATELET COUNT, AUTOMATED 490 10^3/uL (150-450); RED BLOOD COUNT 3.93 10^6/uL (4.00-5.40); RED CELL DISTRIBUTION WIDTH 14.6 % (11.5-14.5); WHITE BLOOD COUNT 11.4 10^3/uL (4.0-10.0)
[2017-08-16 09:57] LABS: ALBUMIN 2.5 GM/DL (3.2-5.2); ALBUMIN/GLOBULIN RATIO 0.54 (1.00-1.93); ALKALINE PHOSPHATASE 369 U/L (45-117); ALT/SGPT 91 U/L (12-78); ANION GAP 11 MEQ/L (8-16); AST/SGOT 34 U/L (7-37); BILIRUBIN,TOTAL 0.6 MG/DL (0.2-1.0); BLOOD UREA NITROGEN 20 MG/DL (7-18); CARBON DIOXIDE LEVEL 24 MEQ/L (21-32); CHLORIDE LEVEL 105 MEQ/L (98-107); CREATININE FOR GFR 0.54 MG/DL (0.55-1.30); GLOMERULAR FILTRATION RATE > 60.0 (>32); GLUCOSE, FASTING 162 MG/DL (70-100); POTASSIUM SERUM 4.3 MEQ/L (3.5-5.1); SODIUM LEVEL 140 MEQ/L (136-145); TOTAL PROTEIN 7.1 GM/DL (6.4-8.2)
== END ==
LOC: SKLAB7 07:07
DX: D64.9 Anemia, unspecified (principal); I10 Essential (primary) hypertension
CPT/HCPCS: 80053

== ENCOUNTER → 2017-09-13 | Outpatient (REF) | payer MEDICARE, OTHER ==
[2017-09-13 08:34] LABS: BASO % 0.3 % (0.0-1.0); EOS % 0.3 % (0.0-3.0); HEMATOCRIT 34.5 % (36.0-47.0); HEMOGLOBIN 11.1 g/dl (12.0-16.0); IMMATURE GRANULOCYTE % 0.7 % (0-3.0); LYMPH # 1.8 10^3/uL (1.5-4.5); LYMPH % 13.4 % (24.0-44.0); MEAN CORPUSCULAR HEMOGLOBIN 29.5 pg (27.0-33.0); MEAN CORPUSCULAR HGB CONC 32.2 g/dl (32.0-36.5); MEAN CORPUSCULAR VOLUME 91.8 fl (80.0-96.0); MONO # 0.9 10^3/uL (0.0-0.8); MONO % 6.9 % (0.0-5.0); NEUTROPHILS # 10.6 10^3/uL (1.8-7.7); NEUTROPHILS % 78.4 % (36.0-66.0); PLATELET COUNT, AUTOMATED 586 10^3/uL (150-450); RED BLOOD COUNT 3.76 10^6/uL (4.00-5.40); RED CELL DISTRIBUTION WIDTH 13.1 % (11.5-14.5); WHITE BLOOD COUNT 13.6 10^3/uL (4.0-10.0)
[2017-09-13 08:56] LABS: ALBUMIN 2.5 GM/DL (3.2-5.2); ALKALINE PHOSPHATASE 156 U/L (45-117); ALT/SGPT 35 U/L (12-78); ANION GAP 11 MEQ/L (8-16); AST/SGOT 22 U/L (7-37); BILIRUBIN,TOTAL 0.4 MG/DL (0.2-1.0); BLOOD UREA NITROGEN 24 MG/DL (7-18); CARBON DIOXIDE LEVEL 22 MEQ/L (21-32); CHLORIDE LEVEL 106 MEQ/L (98-107); CREATININE FOR GFR 0.61 MG/DL (0.55-1.30); GLOMERULAR FILTRATION RATE > 60.0 (>32); GLUCOSE, FASTING 129 MG/DL (70-100); POTASSIUM SERUM 4.6 MEQ/L (3.5-5.1); SODIUM LEVEL 139 MEQ/L (136-145); TOTAL PROTEIN 7.5 GM/DL (6.4-8.2)
== END ==
LOC: SKLAB7 11:09
DX: D64.9 Anemia, unspecified (principal); I10 Essential (primary) hypertension
CPT/HCPCS: 80053